=== PATIENT | female | born 1955 | race Caucasian/White ===

== ENCOUNTER → 2016-09-11 | Outpatient (CLI) | payer MEDICARE ==
[~2016-09-11] MED LIST: ACTOS30 MG PO; ALLOPURINOL100 MG PO; AMARYL2 MG PO; ASPI-COR81 M1 PO; AV-PHOS 250 NE250 MG PO; Amaryl2 MG PO; BACTRIM 400 MG-1 TAB PO; CELLCEPT500 MG PO; CLONIDINE0.3 MG PO; COLACE100 MG PO; COREG3.125 MG PO; COREG6.25 MG PO; COUMADIN0.5 MG PO; COUMADIN3 M1 PO; COUMADIN4 M1 PO; Coumadin2.5 MG PO; Coumadin3 MG PO; DIOVAN80 MG PO; FLEXERIL10 MG PO; FOSRENOL500 MG PO; FUROSEMIDE80 MG PO; HYDROCODONE BIT1 T11 PO; IMDUR SA30 MG PO; IMDUR SA60 M1 PO; IMDUR30 MG PO; IRON325 M1 PO; IRON65 MG PO; LASIX20 MG PO; LASIX40 MG PO; LEVEMIR10 ML SC; LIPITOR40 MG PO; LISINOPRIL10 M1 PO; LOPRESSOR25 MG PO; Lopressor25 MG PO; MAG OXIDE PO; MAGNESIUM OXID400 MG PO; MAGOX 400400 MG PO; MECLIZINE HCL25 M2 PO; MEDROL DOSEPAK4 MG PO; METFORMIN500 MG PO; MYCOSTATIN100000 U/M PO; NORVASC10 MG PO; NORVASC5 MG PO; NOVOLOG 70/30 M10 ML SC; NOVOLOG10 ML SC; OSCAL ULTRA 6001 TA1 PO; PHOS-NAK1 PDR PO; PHOSLO667 M1 PO; PLAVIX75 M1 PO; PLAVIX75 MG PO; PRILOSEC20 MG PO; PROCRIT10000 U/ML IJ; PROGRAF0.5 MG PO; PROGRAF1 MG PO; RANEXA500 MG PO; SENSIPAR30 MG PO; SEPTRA DS1 TAB PO; SKELAXIN800 MG PO; SODIUM BICARBO650 MG PO; SYNTHROID,LEVO25 MCG PO; SYNTHROID0.025 MG PO; SYNTHROID25 MCG PO; Senokot1 TAB PO; VALCYTE450 MG PO; VICODIN 5/500 505 MG PO; VICODIN 500 MG-1 TAB PO; VICODIN ES 7501 TAB PO; VITAMIN D-32000 UNI1 PO; WARFARIN SOD2 MG PO; WARFARIN SOD5 MG PO; XANAX0.25 MG PO; ZOLOFT50 MG PO
[2016-09-11 08:57] LABS: BASO % 0.5 % (0.0-1.0); EOS # 0.2 10*3/uL (0.0-0.4); EOS % 2.7 % (1.0-4.0); HEMATOCRIT 43.9 % (37.0-47.0); HEMOGLOBIN 14.4 g/dl (12.0-16.0); LYMPH # 0.9 10*3/uL (1.3-4.4); LYMPH % 14.2 % (27.0-41.0); MEAN CELL VOLUME 88.2 fl (81.0-99.0); MEAN CORPUSCULAR HGB 28.9 pg (27.0-31.0); MEAN CORPUSCULAR HGB CONC 32.8 g/dl (33.0-37.0); MONO # 0.6 10*3/uL (0.1-1.0); MONO % 9.7 % (3.0-9.0); NEUT # 4.5 10*3/uL (2.3-7.9); NEUT % 72.4 % (47.0-73.0); PLATELET COUNT AUTOMATED 144 10*3/uL (130-400); RED BLOOD COUNT 4.98 10*6/uL (4.10-5.10); RED CELL DISTRI WIDTH 12.8 % (0-14.5); WHITE BLOOD COUNT 6.2 10*3/uL (4.8-10.8)
[2016-09-11 09:55] LABS: ALBUMIN 3.6 gm/dl (3.1-4.5); ALKALINE PHOSPHATASE 97 U/L (45-117); BILIRUBIN, TOTAL 0.5 mg/dl (0.2-1.0); BUN 19 mg/dl (7-24); CARBON DIOXIDE 29 mmol/L (21-32); CHLORIDE 109 mmol/L (98-107); CHOLESTEROL 152 mg/dL (<200); CPK 65 U/L (26-192); EST GLOM FILT AFRICAN AMERICAN > 60 ml/min; GLUCOSE 116 mg/dL (65-99); LDH 151 U/L (84-246); PHOSPHOROUS 2.2 mg/dL (2.5-4.9); POTASSIUM 4.1 mmol/L (3.5-5.1); SGOT/AST 20 IU/L (3-35); SGPT/ALT 27 U/L (12-78); SODIUM 145 mmol/L (136-145); TOTAL PROTEIN 6.4 gm/dL (6.4-8.2)
== END | disposition home or self-care (01) ==
LOC: LAB 08:18
PROVIDERS: Internal Medicine Nephrology
DX: I15.1 Hypertension secondary to other renal disorders (principal); E83.40 Disorders of magnesium metabolism, unspecified; D89.9 Disorder involving the immune mechanism, unspecified; D63.1 Anemia in chronic kidney disease; T86.19 Other complication of kidney transplant; Z94.0 Kidney transplant status

== ENCOUNTER 2016-09-21 12:34 | Emergency (ER) | payer MEDICARE ==
[~2016-09-21 12:34] MED LIST changes: -LISINOPRIL10 M1 PO; -ZOLOFT50 MG PO
[2016-09-21 13:24] LABS: BASO % 0.6 % (0.0-1.0); EOS # 0.2 10*3/uL (0.0-0.4); EOS % 3.3 % (1.0-4.0); HEMATOCRIT 42.6 % (37.0-47.0); HEMOGLOBIN 13.9 g/dl (12.0-16.0); LYMPH % 18.1 % (27.0-41.0); MEAN CELL VOLUME 88.4 fl (81.0-99.0); MEAN CORPUSCULAR HGB 28.8 pg (27.0-31.0); MEAN CORPUSCULAR HGB CONC 32.6 g/dl (33.0-37.0); MEAN PLATELET VOLUME 12.2 fl (9.6-12.3); MONO # 0.7 10*3/uL (0.1-1.0); NEUT # 3.5 10*3/uL (2.3-7.9); NEUT % 65.6 % (47.0-73.0); PLATELET COUNT AUTOMATED 143 10*3/uL (130-400); RED BLOOD COUNT 4.82 10*6/uL (4.10-5.10); RED CELL DISTRI WIDTH 12.8 % (0-14.5); WHITE BLOOD COUNT 5.4 10*3/uL (4.8-10.8)
[2016-09-21 13:35] LABS: INTERNATIONAL NORM RATIO 2.3 (2.0-3.5); PROTHROMBIN TIME 24.8 SECONDS (9.0-12.4)
[2016-09-21 13:40] LABS: ALBUMIN 3.4 gm/dl (3.1-4.5); ALKALINE PHOSPHATASE 91 U/L (45-117); BILIRUBIN, TOTAL 0.4 mg/dl (0.2-1.0); BUN 18 mg/dl (7-24); CARBON DIOXIDE 25 mmol/L (21-32); CHLORIDE 108 mmol/L (98-107); EST GLOM FILT AFRICAN AMERICAN > 60 ml/min; GLUCOSE 139 mg/dL (65-99); POTASSIUM 4.3 mmol/L (3.5-5.1); SGOT/AST 17 IU/L (3-35); SGPT/ALT 22 U/L (12-78); SODIUM 142 mmol/L (136-145); TOTAL PROTEIN 6.2 gm/dL (6.4-8.2)
[2016-10-02] MEDS ORDERED: PROGRAF0.5 MG PO (11:57)
[2016-10-02] MEDS ORDERED: LISINOPRIL10 M1 PO (11:59)
[2016-10-02] MEDS ORDERED: VITAMIN D-32000 UNI1 PO (12:03)
[2016-10-02] MEDS ORDERED: ZOLOFT50 MG PO (12:06)
[2016-10-02] MEDS ORDERED: NOVOLOG10 ML SC (12:07)
[2016-10-04] MEDS ORDERED: LOPRESSOR25 MG PO (12:40)
== END 2016-09-21 15:09 | disposition home or self-care (01) ==
LOC: ED 12:34
PROVIDERS: Nurse Practitioner Family
DX: S01.81XA Laceration without foreign body of other part of head, initial encounter (principal); S80.01XA Contusion of right knee, initial encounter; S66.912A Strain of unspecified muscle, fascia and tendon at wrist and hand level, left hand, initial encounter; S66.911A Strain of unspecified muscle, fascia and tendon at wrist and hand level, right hand, initial encounter; Z79.4 Long term (current) use of insulin; Z79.01 Long term (current) use of anticoagulants; Z90.49 Acquired absence of other specified parts of digestive tract; Z88.6 Allergy status to analgesic agent; Z88.8 Allergy status to other drugs, medicaments and biological substances; W19.XXXA Unspecified fall, initial encounter; Y93.89 Activity, other specified; Y92.9 Unspecified place or not applicable; Y99.9 Unspecified external cause status

== ENCOUNTER → 2016-11-11 | Outpatient (CLI) | payer MEDICARE ==
[~2016-11-11] MED LIST changes: +LISINOPRIL10 M1 PO; +ZOLOFT50 MG PO
[2016-11-11 09:04] LABS: BASO % 0.5 % (0.0-1.0); EOS # 0.1 10*3/uL (0.0-0.4); EOS % 1.4 % (1.0-4.0); HEMATOCRIT 43.8 % (37.0-47.0); HEMOGLOBIN 14.7 g/dl (12.0-16.0); IG # 0.1 10*3/uL (0.0-0.1); LYMPH # 1.2 10*3/uL (1.3-4.4); LYMPH % 19.3 % (27.0-41.0); MEAN CELL VOLUME 86.9 fl (81.0-99.0); MEAN CORPUSCULAR HGB 29.2 pg (27.0-31.0); MEAN CORPUSCULAR HGB CONC 33.6 g/dl (33.0-37.0); MEAN PLATELET VOLUME 12.4 fl (9.6-12.3); MONO # 0.6 10*3/uL (0.1-1.0); MONO % 9.6 % (3.0-9.0); NEUT # 4.3 10*3/uL (2.3-7.9); NEUT % 68.4 % (47.0-73.0); PLATELET COUNT AUTOMATED 178 10*3/uL (130-400); RED BLOOD COUNT 5.04 10*6/uL (4.10-5.10); RED CELL DISTRI WIDTH 13.2 % (0-14.5); WHITE BLOOD COUNT 6.2 10*3/uL (4.8-10.8)
[2016-11-11 09:24] LABS: ALBUMIN 3.4 gm/dl (3.1-4.5); ALKALINE PHOSPHATASE 106 U/L (45-117); BILIRUBIN, TOTAL 0.5 mg/dl (0.2-1.0); BUN 18 mg/dl (7-24); CARBON DIOXIDE 25 mmol/L (21-32); CHLORIDE 109 mmol/L (98-107); CHOLESTEROL 172 mg/dL (<200); EST GLOM FILT AFRICAN AMERICAN > 60 ml/min; GLUCOSE 174 mg/dL (65-99); HDL CHOLESTEROL 57 mg/dl (40-60); LDH 170 U/L (84-246); LDL CHOLESTEROL 89 mg/dL (9-159); MAGNESIUM 2.3 mg/dL (1.5-2.1); PHOSPHOROUS 2.1 mg/dL (2.5-4.9); POTASSIUM 4.2 mmol/L (3.5-5.1); SGOT/AST 15 IU/L (3-35); SGPT/ALT 30 U/L (12-78); SODIUM 144 mmol/L (136-145); TOTAL PROTEIN 6.1 gm/dL (6.4-8.2); TRIGLYCERIDES 132 mg/dl (<150); URIC ACID 4.8 mg/dL (2.6-6.0); VLDL CHOLESTEROL 26 mg/dL (6-40)
[2016-11-11 09:31] LABS: CPK 64 U/L (26-192); FREE T4 1.07 ng/dl (0.76-1.46)
[2016-11-11 09:34] LABS: PTH INTACT 226.4 pg/mL (14.0-72.0); VITAMIN D, 25-HYDROXY 46.5 ng/mL (30-100)
[2016-11-11 10:18] LABS: URINE TP/CRE RATIO 0.1 (<0.21)
[2016-11-11 10:27] LABS: BILIRUBIN NEGATIVE (NEGATIVE); BLOOD NEGATIVE (NEGATIVE); CLARITY SL CLOUDY (CLEAR); COLOR YELLOW (YELLOW); GLUCOSE 2+ (NEGATIVE); KETONE NEGATIVE (NEGATIVE); LEUKO ESTERASE NEGATIVE (NEGATIVE); NITRITE NEGATIVE (NEGATIVE); PROTEIN NEGATIVE (NEGATIVE)
[2016-11-11 10:37] LABS: BACTERIA TRACE
== END | disposition home or self-care (01) ==
LOC: LAB 08:13
PROVIDERS: Internal Medicine Nephrology
DX: E03.9 Hypothyroidism, unspecified (principal); D89.9 Disorder involving the immune mechanism, unspecified; N25.81 Secondary hyperparathyroidism of renal origin; E78.2 Mixed hyperlipidemia; E55.9 Vitamin D deficiency, unspecified; E83.40 Disorders of magnesium metabolism, unspecified; I51.7 Cardiomegaly; T86.19 Other complication of kidney transplant; D63.1 Anemia in chronic kidney disease; Z94.0 Kidney transplant status

== ENCOUNTER 2016-11-26 15:00 | Inpatient (IN) | payer MEDICARE ==
[~2016-11-26] VITALS: Ht 167.6 cm; Wt 87.8 kg
--- NOTE | ~2016-11-26 | ST ---
[place], [place] EXERCISE STRESS TEST REPORT NAME: JEFF MCKENZIE UNIT #: [id number] ROOM: 427 DOCTOR: AIDE LI MD BIRTHDATE: [birth year] DOS: 11/27/2016 Lexiscan portion of the Lexiscan Cardiolite. Baseline cardiogram sinus rhythm with nonspecific ST-T changes, 0.4 mg Lexiscan, duration of 10 seconds. With Lexiscan, no EKG changes. No chest pain. Blood pressure and heart rate response was normal. Nuclear images will be reported separately. AIDE LI MD CM:STRESS:EXERCISE STRESS TEST REPORT [id number] AIDE LI MD
--- NOTE | ~2016-11-26 | CON ---
[place], [place] REPORT OF CONSULTATION NAME[facility]IE [id number] UNIT #: [id number] ROOM: 427 DOCTOR: GUILLERMO LOFTONAIDE BIRTHDATE: [birth year] DOS: 11/27/2016 CHIEF COMPLAINT: Chest pressure. HISTORY OF PRESENT ILLNESS: A 61-year-old female very well known to in who had done a heart catheterization last year prior to her renal transplantation. She was seen by Dr. Razo, who was covering in in September, had an echocardiogram that showed an excellent ejection fraction, came in with very similar complaints of chest pressure and tightness in her throat area, particularly with exertion. She was able to relieve the pressure by eating some , taking aspirin, but yesterday afternoon it got worse, and she came here. No acute EKG changes suggestion of myocardial ischemia. According to the patient, she had a stress test in June prior to her renal transplantation in [place] and it was normal, but she is still very symptomatic with that, and last time when she was here in September and Dr. Razo was covering in, her ejection fraction was preserved according to the patient. Right now, she still complains of chest heaviness and pressure with radiation to the jaw area and to the left arm area. She did have a heart catheterization, which I remember try to get the reports from [place], had single vessel coronary artery disease with collateralization. PAST MEDICAL HISTORY: Significant for Alport's syndrome, chronic kidney disease, renal transplantation, diabetes, history of myocardial infarction, immunocompromised patient, history of DVT. PAST SURGICAL HISTORY: Cardiac catheterization, the last one is 2013, kidney transplant recipient, status post tonsillectomy, adenoidectomy. SOCIAL HISTORY: Denies any alcohol or drug abuse. FAMILY HISTORY: Positive for lung cancer and coronary artery disease and diabetes. HOME MEDICATIONS: Amlodipine, atorvastatin, clopidogrel, insulin, levothyroxine, metoprolol, Coumadin. REVIEW OF SYSTEMS: CONSTITUTIONAL: No fever, no chills. HEENT: No visual disturbances or hearing problems. CARDIOVASCULAR: As described in HPI. RESPIRATORY: Does have shortness of breath. GENITOURINARY: No dysuria, hematuria. NEUROLOGIC: No syncope. PSYCHIATRIC: No depression. ENDOCRINE: Intact. PHYSICAL EXAMINATION: VITAL SIGNS: Pressure is 130/70. She is in sinus rhythm. HEENT: Unremarkable. No carotid bruit, no thyromegaly, no lymphadenopathy. LUNGS: Diminished air entry. [place], [place] REPORT OF CONSULTATION NAME: JEFF MCKENZIE UNIT #: [id number] ROOM: [facility] DOCTOR: AIDE LI MD BIRTHDATE: [birth year] HEART: Sounds are regular. ABDOMEN: Soft, nontender. NEUROLOGICAL: Alert, oriented x3. Sensory and motor intact, appears to be very anxious. LABORATORY DATA: Sodium 143, potassium 4.1, BUN and creatinine 16 and 0.9. CPK-MB, troponins are all negative. Hemoglobin and hematocrit within normal limits. EKG sinus rhythm with nonspecific ST-T changes. Chest x-ray showed normal. IMPRESSION: The patient with chest heaviness known history of coronary artery disease, renal transplantation, hypertension, hyperlipidemia, diabetes mellitus. RECOMMENDATIONS: We will proceed with a Lexiscan Cardiolite stress test because of the continued symptoms. She is already on lipid lowering agents, antiplatelet drugs, and nitrates and I will closely follow up. AIDE LI MD CM:CONSTR:REPORT OF CONSULTATION [id number] 11/27/16 0824 interface
[2016-11-26 15:26] VITALS: BP 146/75
[2016-11-26 15:27] LABS: BASO % 0.4 % (0.0-1.0); EOS # 0.1 10*3/uL (0.0-0.4); EOS % 0.6 % (1.0-4.0); HEMATOCRIT 45.3 % (37.0-47.0); HEMOGLOBIN 15.1 g/dl (12.0-16.0); LYMPH % 12.6 % (27.0-41.0); MEAN CORPUSCULAR HGB 29.3 pg (27.0-31.0); MEAN CORPUSCULAR HGB CONC 33.3 g/dl (33.0-37.0); MEAN PLATELET VOLUME 11.8 fl (9.6-12.3); MONO # 0.7 10*3/uL (0.1-1.0); MONO % 9.3 % (3.0-9.0); NEUT % 76.7 % (47.0-73.0); PLATELET COUNT AUTOMATED 170 10*3/uL (130-400); RED BLOOD COUNT 5.15 10*6/uL (4.10-5.10); RED CELL DISTRI WIDTH 13.1 % (0-14.5); WHITE BLOOD COUNT 7.9 10*3/uL (4.8-10.8)
[2016-11-26 15:36] LABS: INTERNATIONAL NORM RATIO 2.9 (2.0-3.5); PROTHROMBIN TIME 32.3 SECONDS (9.0-12.4)
[2016-11-26 15:43] LABS: ALBUMIN 3.7 gm/dl (3.1-4.5); BILIRUBIN, TOTAL 0.4 mg/dl (0.2-1.0); BUN 16 mg/dl (7-24); CARBON DIOXIDE 26 mmol/L (21-32); CHLORIDE 108 mmol/L (98-107); CKMB 0.8 ng/ml (0.5-3.6); EST GLOM FILT AFRICAN AMERICAN > 60 ml/min; GLUCOSE 136 mg/dL (65-99); POTASSIUM 4.1 mmol/L (3.5-5.1); SGOT/AST 15 IU/L (3-35); SGPT/ALT 34 U/L (12-78); SODIUM 143 mmol/L (136-145); TOTAL PROTEIN 6.7 gm/dL (6.4-8.2)
[2016-11-26 15:44] LABS: ALKALINE PHOSPHATASE 110 U/L (45-117); CPK 70 U/L (26-192)
[2016-11-26 15:49] LABS: C-REACTIVE PROTEIN < 0.29 MG/DL (0-0.3); TROPONIN I < 0.015 ng/ml (<0.045)
[2016-11-26 16:03] VITALS: BP 130/74
[2016-11-26 16:42] VITALS: BP 134/72
[2016-11-26 17:24] LABS: LA>2 REFLEX 2 HR DRAW NOW
[2016-11-26 17:35] VITALS: BP 152/62
[2016-11-26] MEDS ORDERED: BACTRIM 400 MG-1 TAB PO (17:52)
[2016-11-26] MEDS ORDERED: LOPRESSOR25 MG PO (17:53)
[2016-11-26 18:08] LABS: CKMB 0.6 ng/ml (0.5-3.6); CPK 62 U/L (26-192)
[2016-11-26 18:12] LABS: TROPONIN I < 0.015 ng/ml (<0.045)
[2016-11-27] VITALS: BP 114/60
[2016-11-27 01:38] LABS: CKMB 0.6 ng/ml (0.5-3.6); CPK 55 U/L (26-192)
[2016-11-27 01:42] LABS: TROPONIN I < 0.015 ng/ml (<0.045)
[2016-11-27 06:12] LABS: BASO % 0.3 % (0.0-1.0); EOS # 0.1 10*3/uL (0.0-0.4); EOS % 1.4 % (1.0-4.0); HEMATOCRIT 41.5 % (37.0-47.0); HEMOGLOBIN 13.9 g/dl (12.0-16.0); LYMPH # 0.9 10*3/uL (1.3-4.4); LYMPH % 14.2 % (27.0-41.0); MEAN CELL VOLUME 88.5 fl (81.0-99.0); MEAN CORPUSCULAR HGB 29.6 pg (27.0-31.0); MEAN CORPUSCULAR HGB CONC 33.5 g/dl (33.0-37.0); MONO # 0.8 10*3/uL (0.1-1.0); MONO % 12.3 % (3.0-9.0); NEUT # 4.5 10*3/uL (2.3-7.9); NEUT % 71.3 % (47.0-73.0); PLATELET COUNT AUTOMATED 154 10*3/uL (130-400); RED BLOOD COUNT 4.69 10*6/uL (4.10-5.10); RED CELL DISTRI WIDTH 13.2 % (0-14.5); WHITE BLOOD COUNT 6.3 10*3/uL (4.8-10.8)
[2016-11-27 06:26] LABS: CKMB 0.7 ng/ml (0.5-3.6); CPK 56 U/L (26-192)
[2016-11-27 06:38] LABS: TROPONIN I < 0.015 ng/ml (<0.045)
[2016-11-27 06:54] LABS: INTERNATIONAL NORM RATIO 2.8 (2.0-3.5); PROTHROMBIN TIME 31.5 SECONDS (9.0-12.4)
[2016-11-27 07:06] LABS: HEMOGLOBIN A1c 7.3 % (4.8-5.6)
[2016-11-27 07:07] LABS: BUN 16 mg/dl (7-24); CARBON DIOXIDE 26 mmol/L (21-32); CHLORIDE 107 mmol/L (98-107); CHOLESTEROL 161 mg/dL (<200); EST GLOM FILT AFRICAN AMERICAN > 60 ml/min; GLUCOSE 176 mg/dL (65-99); MAGNESIUM 1.9 mg/dL (1.5-2.1); PHOSPHOROUS 2.5 mg/dL (2.5-4.9); POTASSIUM 3.9 mmol/L (3.5-5.1); SODIUM 142 mmol/L (136-145)
[2016-11-27 07:18] LABS: FREE T4 1.04 ng/dl (0.76-1.46); HDL CHOLESTEROL 58 mg/dl (40-60); LDL CHOLESTEROL 78 mg/dL (9-159); TRIGLYCERIDES 127 mg/dl (<150); VLDL CHOLESTEROL 25 mg/dL (6-40)
[2016-11-27 08:00] VITALS: BP 155/75
[2016-11-27 12:00] VITALS: BP 113/68
[2016-11-27 16:00] VITALS: BP 110/65
[2016-11-27 20:00] VITALS: BP 102/58
[2016-11-28] VITALS: BP 124/66
[2016-11-28 05:10] VITALS: BP 133/71
[2016-11-28 05:18] VITALS: BP 148/92
== END 2016-11-28 06:37 | disposition short-term general hospital (02) | DRG 303 ==
LOC: ED 15:00 → 4E 16:33 → EDHOLD 16:33 → 4E 17:00 → ICCU 11-28 05:50
PROVIDERS: Emergency Medicine; Student in an Organized Health Care Education/Training Program
PROC: 4A02XM4 Measurement of Cardiac Total Activity, External Approach (ICD-10-PCS; principal; 2016-11-27)
DX: I25.10 Atherosclerotic heart disease of native coronary artery without angina pectoris (principal); E11.22 Type 2 diabetes mellitus with diabetic chronic kidney disease; I82.509 Chronic embolism and thrombosis of unspecified deep veins of unspecified lower extremity; Q87.81 Alport syndrome; Z94.0 Kidney transplant status; E78.5 Hyperlipidemia, unspecified; N18.9 Chronic kidney disease, unspecified; E03.9 Hypothyroidism, unspecified; I12.9 Hypertensive chronic kidney disease with stage 1 through stage 4 chronic kidney disease, or unspecified chronic kidney disease; I25.2 Old myocardial infarction; Z90.49 Acquired absence of other specified parts of digestive tract; Z80.1 Family history of malignant neoplasm of trachea, bronchus and lung; Z82.49 Family history of ischemic heart disease and other diseases of the circulatory system; Z79.01 Long term (current) use of anticoagulants; Z79.84 Long term (current) use of oral hypoglycemic drugs; Z79.899 Other long term (current) drug therapy; Z79.4 Long term (current) use of insulin

== ENCOUNTER → 2016-12-30 | Outpatient (CLI) | payer MEDICARE ==
[2016-12-30 09:18] LABS: BASO # 0.1 10*3/uL (0.0-0.1); BASO % 0.6 % (0.0-1.0); EOS # 0.3 10*3/uL (0.0-0.4); EOS % 3.8 % (1.0-4.0); HEMATOCRIT 39.7 % (37.0-47.0); HEMOGLOBIN 12.7 g/dl (12.0-16.0); LYMPH % 11.5 % (27.0-41.0); MEAN CELL VOLUME 90.4 fl (81.0-99.0); MEAN CORPUSCULAR HGB 28.9 pg (27.0-31.0); MONO # 0.9 10*3/uL (0.1-1.0); MONO % 9.8 % (3.0-9.0); NEUT # 6.4 10*3/uL (2.3-7.9); NEUT % 74.1 % (47.0-73.0); PLATELET COUNT AUTOMATED 262 10*3/uL (130-400); RED BLOOD COUNT 4.39 10*6/uL (4.10-5.10); RED CELL DISTRI WIDTH 13.7 % (0-14.5); WHITE BLOOD COUNT 8.7 10*3/uL (4.8-10.8)
[2016-12-30 09:46] LABS: ALBUMIN 3.3 gm/dl (3.1-4.5); ALKALINE PHOSPHATASE 142 U/L (45-117); BILIRUBIN, TOTAL 0.3 mg/dl (0.2-1.0); BUN 21 mg/dl (7-24); CARBON DIOXIDE 29 mmol/L (21-32); CHLORIDE 105 mmol/L (98-107); CHOLESTEROL 171 mg/dL (<200); CPK 51 U/L (26-192); EST GLOM FILT AFRICAN AMERICAN > 60 ml/min; GLUCOSE 152 mg/dL (65-99); LDH 174 U/L (84-246); MAGNESIUM 1.8 mg/dL (1.5-2.1); PHOSPHOROUS 2.6 mg/dL (2.5-4.9); POTASSIUM 4.5 mmol/L (3.5-5.1); SGOT/AST 18 IU/L (3-35); SGPT/ALT 21 U/L (12-78); SODIUM 140 mmol/L (136-145); TOTAL PROTEIN 6.7 gm/dL (6.4-8.2); URIC ACID 5.6 mg/dL (2.6-6.0)
== END | disposition home or self-care (01) ==
LOC: LAB 08:39
PROVIDERS: Internal Medicine Nephrology
DX: I15.1 Hypertension secondary to other renal disorders (principal); E83.40 Disorders of magnesium metabolism, unspecified; D89.9 Disorder involving the immune mechanism, unspecified; D63.1 Anemia in chronic kidney disease; T86.19 Other complication of kidney transplant; Z94.0 Kidney transplant status

== ENCOUNTER → 2017-02-16 | Outpatient (CLI) | payer MEDICARE ==
[2017-02-16 08:53] LABS: BASO # 0.1 10*3/uL (0.0-0.1); BASO % 0.7 % (0.0-1.0); EOS # 0.2 10*3/uL (0.0-0.4); EOS % 2.7 % (1.0-4.0); HEMATOCRIT 42.3 % (37.0-47.0); HEMOGLOBIN 13.5 g/dl (12.0-16.0); LYMPH % 13.8 % (27.0-41.0); MEAN CELL VOLUME 89.4 fl (81.0-99.0); MEAN CORPUSCULAR HGB 28.5 pg (27.0-31.0); MEAN CORPUSCULAR HGB CONC 31.9 g/dl (33.0-37.0); MEAN PLATELET VOLUME 12.4 fl (9.6-12.3); MONO # 0.6 10*3/uL (0.1-1.0); MONO % 8.8 % (3.0-9.0); NEUT # 5.4 10*3/uL (2.3-7.9); NEUT % 73.6 % (47.0-73.0); PLATELET COUNT AUTOMATED 164 10*3/uL (130-400); RED BLOOD COUNT 4.73 10*6/uL (4.10-5.10); RED CELL DISTRI WIDTH 13.2 % (0-14.5); WHITE BLOOD COUNT 7.3 10*3/uL (4.8-10.8)
[2017-02-16 09:29] LABS: ALBUMIN 3.6 gm/dl (3.1-4.5); ALKALINE PHOSPHATASE 94 U/L (45-117); BILIRUBIN, TOTAL 0.3 mg/dl (0.2-1.0); BUN 19 mg/dl (7-24); CARBON DIOXIDE 30 mmol/L (21-32); CHLORIDE 106 mmol/L (98-107); CHOLESTEROL 163 mg/dL (<200); CPK 84 U/L (26-192); EST GLOM FILT AFRICAN AMERICAN > 60 ml/min; GLUCOSE 108 mg/dL (65-99); LDH 167 U/L (84-246); MAGNESIUM 1.8 mg/dL (1.5-2.1); PHOSPHOROUS 3.1 mg/dL (2.5-4.9); POTASSIUM 4.1 mmol/L (3.5-5.1); SGOT/AST 18 IU/L (3-35); SGPT/ALT 20 U/L (12-78); SODIUM 144 mmol/L (136-145); TOTAL PROTEIN 6.3 gm/dL (6.4-8.2); URIC ACID 5.4 mg/dL (2.6-6.0)
== END | disposition home or self-care (01) ==
LOC: LAB 08:35
PROVIDERS: Internal Medicine Nephrology
DX: E83.40 Disorders of magnesium metabolism, unspecified (principal); I15.1 Hypertension secondary to other renal disorders; D89.9 Disorder involving the immune mechanism, unspecified; N18.9 Chronic kidney disease, unspecified; D63.1 Anemia in chronic kidney disease; T86.19 Other complication of kidney transplant; Z94.0 Kidney transplant status

== ENCOUNTER → 2017-03-11 | Outpatient (CLI) | payer MEDICARE ==
[2017-03-11 09:13] LABS: BASO # 0.1 10*3/uL (0.0-0.1); BASO % 0.9 % (0.0-1.0); EOS # 0.2 10*3/uL (0.0-0.4); EOS % 3.9 % (1.0-4.0); HEMATOCRIT 40.8 % (37.0-47.0); HEMOGLOBIN 12.8 g/dl (12.0-16.0); LYMPH # 1.1 10*3/uL (1.3-4.4); LYMPH % 18.2 % (27.0-41.0); MEAN CELL VOLUME 88.7 fl (81.0-99.0); MEAN CORPUSCULAR HGB 27.8 pg (27.0-31.0); MEAN CORPUSCULAR HGB CONC 31.4 g/dl (33.0-37.0); MEAN PLATELET VOLUME 13.2 fl (9.6-12.3); MONO # 0.6 10*3/uL (0.1-1.0); MONO % 10.9 % (3.0-9.0); NEUT # 3.9 10*3/uL (2.3-7.9); NEUT % 65.8 % (47.0-73.0); PLATELET COUNT AUTOMATED 146 10*3/uL (130-400); RED CELL DISTRI WIDTH 13.9 % (0-14.5); WHITE BLOOD COUNT 5.9 10*3/uL (4.8-10.8)
[2017-03-11 09:42] LABS: ALBUMIN 3.2 gm/dl (3.1-4.5); ALKALINE PHOSPHATASE 98 U/L (45-117); BILIRUBIN, TOTAL 0.3 mg/dl (0.2-1.0); BUN 26 mg/dl (7-24); CARBON DIOXIDE 27 mmol/L (21-32); CHLORIDE 110 mmol/L (98-107); CHOLESTEROL 153 mg/dL (<200); CPK 82 U/L (26-192); EST GLOM FILT AFRICAN AMERICAN > 60 ml/min; GLUCOSE 112 mg/dL (65-99); LDH 203 U/L (84-246); MAGNESIUM 1.8 mg/dL (1.5-2.1); PHOSPHOROUS 2.7 mg/dL (2.5-4.9); POTASSIUM 4.4 mmol/L (3.5-5.1); SGOT/AST 18 IU/L (3-35); SGPT/ALT 23 U/L (12-78); SODIUM 145 mmol/L (136-145); TOTAL PROTEIN 6.4 gm/dL (6.4-8.2); URIC ACID 5.4 mg/dL (2.6-6.0)
== END | disposition home or self-care (01) ==
LOC: LAB 08:44
PROVIDERS: Internal Medicine Nephrology
DX: I15.1 Hypertension secondary to other renal disorders (principal); E83.40 Disorders of magnesium metabolism, unspecified; T86.19 Other complication of kidney transplant; D89.9 Disorder involving the immune mechanism, unspecified; D63.1 Anemia in chronic kidney disease; Z94.0 Kidney transplant status

== ENCOUNTER 2018-10-27 17:04 | Inpatient (IN) | payer OTHER ==
[~2018-10-27] VITALS: Ht 165.1 cm; Wt 97.2 kg
[2018-10-27 17:05] VITALS: BP 103/65
[2018-10-27 17:57] LABS: BILIRUBIN NEGATIVE (NEGATIVE); BLOOD NEGATIVE (NEGATIVE); CLARITY CLEAR (CLEAR); COLOR YELLOW (YELLOW); GLUCOSE NEGATIVE (NEGATIVE); KETONE NEGATIVE (NEGATIVE); LEUKO ESTERASE NEGATIVE (NEGATIVE); NITRITE NEGATIVE (NEGATIVE); SPECIFIC GRAVITY 1.025 (1.005-1.030); UROBILINOGEN 0.2 E.U./dl (0.2-1.0)
[2018-10-27 18:07] LABS: HYALINE CAST 31-40
[2018-10-27 18:08] LABS: BACTERIA 1+; EPITHELIAL CELLS 21-30; URIC ACID CRYSTALS 1+
[2018-10-27 18:12] LABS: BASO % 0.3 % (0.0-1.0); HEMATOCRIT 46.1 % (37.0-47.0); HEMOGLOBIN 14.5 g/dl (12.0-16.0); LYMPH # 0.3 10*3/uL (1.3-4.4); LYMPH % 4.1 % (27.0-41.0); MEAN CELL VOLUME 90.2 fl (81.0-99.0); MEAN CORPUSCULAR HGB 28.4 pg (27.0-31.0); MEAN CORPUSCULAR HGB CONC 31.5 g/dl (33.0-37.0); MEAN PLATELET VOLUME 12.7 fl (9.6-12.3); MONO # 0.5 10*3/uL (0.1-1.0); MONO % 6.1 % (3.0-9.0); NEUT % 88.2 % (47.0-73.0); PLATELET COUNT AUTOMATED 141 10*3/uL (130-400); RED BLOOD COUNT 5.11 10*6/uL (4.10-5.10); RED CELL DISTRI WIDTH 13.8 % (0-14.5); WHITE BLOOD COUNT 7.9 10*3/uL (4.8-10.8)
[2018-10-27 18:20] LABS: INTERNATIONAL NORM RATIO 2.4 (2.0-3.5)
[2018-10-27 18:36] LABS: ALBUMIN 3.2 gm/dl (3.1-4.5); CREATININE 1.36 mg/dL (0.55-1.02); POTASSIUM 4.2 mmol/L (3.5-5.1); TOTAL PROTEIN 6.7 gm/dL (6.4-8.2)
[2018-10-27 18:37] LABS: TROPONIN I 0.016 ng/ml (<0.045)
--- NOTE | 2018-10-27 19:13 | NUR ---
PATIENT RESTING IN BED WITH AT BEDSIDE. BED IN LOW POSITION, SIDE RIALS UX2, CALL LIGHT IN REACH.
[2018-10-27 20:40] VITALS: BP 148/62
--- NOTE | 2018-10-27 20:40 | NUR ---
Time: 2039 A 63 year old FEMALE admitted to 5E under services of CORRINA GUZMAN DO. Pt. arrived via bed from ER. Chief complaint: FLU. ALEKSANDAR BLANTON
[2018-10-27 20:46] VITALS: BP 104/60
[2018-10-27] MEDS ORDERED: COUMADIN3 M1 PO (21:03)
[2018-10-27] MEDS ORDERED: KLOR-CON M2020 ME1 PO (21:06)
[2018-10-27] MEDS ORDERED: ASPIRIN ADULT L81 M1 PO (21:06)
[2018-10-27] MEDS ORDERED: SENNA-S TABLET1 EACH PO (21:07)
[2018-10-27] MEDS ORDERED: AMITRIPTYLINE10 MG PO (21:08)
[2018-10-27] MEDS ORDERED: PACERONE200 MG PO (21:08)
[2018-10-27] MEDS ORDERED: VERELAN PM PO (21:09)
--- NOTE | 2018-10-27 21:11 | NUR ---
INFORMED THAT MEDICATIONS ARE VERIFIED AND PATIENT NEEDS PROGRAF AND CELLCEPT AT THIS TIME. STATES SHE WILL LET KNOW.
[2018-10-28] VITALS: BP 150/58
[2018-10-28 06:56] LABS: BASO % 0.2 % (0.0-1.0); EOS % 0.2 % (1.0-4.0); LYMPH # 0.6 10*3/uL (1.3-4.4); LYMPH % 9.7 % (27.0-41.0); MEAN CELL VOLUME 89.9 fl (81.0-99.0); MEAN CORPUSCULAR HGB 28.6 pg (27.0-31.0); MEAN CORPUSCULAR HGB CONC 31.8 g/dl (33.0-37.0); MEAN PLATELET VOLUME 12.5 fl (9.6-12.3); MONO # 0.6 10*3/uL (0.1-1.0); MONO % 9.2 % (3.0-9.0); NEUT % 78.9 % (47.0-73.0); PLATELET COUNT AUTOMATED 131 10*3/uL (130-400); RED BLOOD COUNT 4.34 10*6/uL (4.10-5.10); WHITE BLOOD COUNT 6.3 10*3/uL (4.8-10.8)
[2018-10-28 07:06] LABS: HEMOGLOBIN 12.4 g/dl (12.0-16.0)
[2018-10-28 07:21] LABS: INTERNATIONAL NORM RATIO 2.8 (2.0-3.5)
[2018-10-28 07:24] LABS: ALBUMIN 2.7 gm/dl (3.1-4.5); ALKALINE PHOSPHATASE 111 U/L (45-117); BUN 17 mg/dl (7-24); CHLORIDE 107 mmol/L (98-107); CHOLESTEROL 102 mg/dL (<200); CREATININE 1.04 mg/dL (0.55-1.02); FREE T4 1.36 ng/dl (0.76-1.46); HDL CHOLESTEROL 32 mg/dl (40-60); LDL CHOLESTEROL 40 mg/dL (9-159); PHOSPHOROUS 2.3 mg/dL (2.5-4.9); POTASSIUM 3.9 mmol/L (3.5-5.1); SGOT/AST 247 IU/L (3-35); SGPT/ALT 293 U/L (12-78); SODIUM 141 mmol/L (136-145); TOTAL PROTEIN 5.6 gm/dL (6.4-8.2); TRIGLYCERIDES 148 mg/dl (<150); VLDL CHOLESTEROL 30 mg/dL (6-40)
[2018-10-28 08:00] VITALS: BP 141/56
[2018-10-28 12:00] VITALS: BP 136/60
--- NOTE | 2018-10-28 13:28 | NUR ---
[employer]ter [employer] in to talk to patient. Patient states lives at HOME with . There are BASEMENT steps in the home. Physician: OBEY DRISCOLL Pharmacy: [facility] health services: NONE Patient's level of ADLs: INDEPENDENT Patient has working utilities: YES DME: HAS WALKER AND POTTY CHAIR IF SHE NEEDS THEM Follow-up physician's appointment after d/c: WILL BE MADE BY HOSPITALIST NURSE DIRECTOR ON DISCHARGE Does patient want to access PORTAL?: NO Discharge plan PT STATES SHE LIVES AT HOME ALONE AND IS INDEPENDENT IN CARE. STATES SHE PLANS TO RETURN HOME AND WILL HAVE NO NEEDS. WILL CONTINUE TO FOLLOW. STATES SHE WILL HAVE A RIDE HOME ON DISCHARGE. . PASCUAL HERRERA
[2018-10-28 16:00] VITALS: BP 129/52
--- NOTE | 2018-10-28 16:21 | NUR ---
NOTIFIED DR NEIL THAT PT RETURNED FROM [place] AND WAS REQUESTING TO EAT.AWAITING ORDERS.
[2018-10-28 20:00] VITALS: BP 149/53
[2018-10-29] VITALS: BP 138/48
--- NOTE | 2018-10-29 00:41 | NUR ---
PATIENT MEDICATED WITH TYLENOL FOR TEMP OF 100.6. PATIENT ALSO REQUESTED RESTORIL AT THIS TIME
--- NOTE | 2018-10-29 01:41 | NUR ---
TYLENOL EFFECTIVE FOR INCREASED TEMP. TEMP NOW IS 97.7 ORAL
--- NOTE | 2018-10-29 05:09 | NUR ---
24 HR chart check completed.
[2018-10-29 07:33] LABS: HEMATOCRIT 37.8 % (37.0-47.0); HEMOGLOBIN 11.9 g/dl (12.0-16.0); MEAN CELL VOLUME 89.8 fl (81.0-99.0); MEAN CORPUSCULAR HGB 28.3 pg (27.0-31.0); MEAN CORPUSCULAR HGB CONC 31.5 g/dl (33.0-37.0); MEAN PLATELET VOLUME 12.4 fl (9.6-12.3); PLATELET COUNT AUTOMATED 135 10*3/uL (130-400); RED BLOOD COUNT 4.21 10*6/uL (4.10-5.10); RED CELL DISTRI WIDTH 14.1 % (0-14.5)
[2018-10-29 07:40] LABS: INTERNATIONAL NORM RATIO 3.5 (2.0-3.5)
[2018-10-29 08:00] VITALS: BP 146/58
[2018-10-29 08:10] LABS: HEPATITIS B SURFACE AG Negative (Negative); HEPATITIS C VIRUS ANTIBODY <0.1 s/co (0.0-0.9)
[2018-10-29 08:24] LABS: BUN 12 mg/dl (7-24); CHLORIDE 104 mmol/L (98-107); POTASSIUM 3.7 mmol/L (3.5-5.1); SODIUM 138 mmol/L (136-145)
[2018-10-29 08:25] LABS: CREATININE 0.86 mg/dL (0.55-1.02); PHOSPHOROUS 2.4 mg/dL (2.5-4.9)
[2018-10-29 08:40] LABS: PLATELET SUFFICIENCY NORMAL (NORMAL); TOTAL CELLS COUNTED 100 #CELLS
--- NOTE | 2018-10-29 11:31 | NUR ---
PT CONTINUES TO DENY HOME NEEDS WILL CONTINUE TO FOLLOW.
[2018-10-29 12:00] VITALS: BP 135/60
[2018-10-29 16:00] VITALS: BP 130/64
[2018-10-29 20:00] VITALS: BP 146/56
[2018-10-30] VITALS: BP 143/54
--- NOTE | 2018-10-30 01:03 | NUR ---
Medicated with Restoril po prn for help with sleep. Will monitor effectiveness. Call light within reach.
--- NOTE | 2018-10-30 01:32 | NUR ---
24 HR chart check completed.
[2018-10-30 06:30] LABS: HEMATOCRIT 37.3 % (37.0-47.0); HEMOGLOBIN 11.6 g/dl (12.0-16.0); MEAN CELL VOLUME 89.7 fl (81.0-99.0); MEAN CORPUSCULAR HGB 27.9 pg (27.0-31.0); MEAN CORPUSCULAR HGB CONC 31.1 g/dl (33.0-37.0); MEAN PLATELET VOLUME 12.5 fl (9.6-12.3); PLATELET COUNT AUTOMATED 126 10*3/uL (130-400); RED BLOOD COUNT 4.16 10*6/uL (4.10-5.10)
[2018-10-30 06:39] LABS: BUN 11 mg/dl (7-24); CHLORIDE 106 mmol/L (98-107); CREATININE 0.85 mg/dL (0.55-1.02); POTASSIUM 4.2 mmol/L (3.5-5.1); SODIUM 139 mmol/L (136-145)
[2018-10-30 06:57] LABS: INTERNATIONAL NORM RATIO 3.2 (2.0-3.5)
[2018-10-30 07:40] LABS: PLATELET SUFFICIENCY LOW (NORMAL); TOTAL CELLS COUNTED 100 #CELLS
[2018-10-30 07:41] LABS: BURR CELLS FEW
[2018-10-30 08:00] VITALS: BP 152/61
--- NOTE | 2018-10-30 08:34 | NUR ---
24 HR chart check completed.
[2018-10-30 12:00] VITALS: BP 128/62
--- NOTE | 2018-10-30 12:00 | NUR ---
DR HOWARD PRESENT ON FLOOR TO ASSESS PATIENT AND DISCUSS PLAN OF CARE
--- NOTE | 2018-10-30 12:21 | NUR ---
MEDICATED WITH ZOFRAN IV PER PRN ORDER FOR NAUSEA. WILL MONITOR
--- NOTE | 2018-10-30 12:30 | NUR ---
PULSE OX 80'S ON ROOM AIR. O2 APPLIED AT 3L, PATIENT INSTRUCTED TO DEEP BREATH. PULSE OX 93%. DR HOWARD INFORMED
--- NOTE | 2018-10-30 14:00 | NUR ---
STATES RELIEF FROM ZOFRAN
[2018-10-30 16:00] VITALS: BP 145/58
[2018-10-30 20:00] VITALS: BP 120/49
--- NOTE | 2018-10-30 21:40 | NUR ---
PT C/O INSOMNIA AND RESTLESSNESS. ALSO NOTED TO HAVE FEVER OF 100.0. TYLENOL 650 MG PO GIVEN AT THIS TIME. RESTORIL GIVEN. WILL MONITOR FOR EFFECTIVENESS. CALL LIGHT IN REACH.
--- NOTE | 2018-10-30 22:00 | NUR ---
PT REFUSES HUMALOG COVERAGE FOR BLOOD SUGAR OF 248. LANTUS GIVEN PER ORDERS. WILL CONTINUE TO MONITOR. CALL LIGHT IN REACH.
[2018-10-31] VITALS: BP 126/61
--- NOTE | 2018-10-31 01:52 | NUR ---
TYLENOL EFFECTIVE. PT TEMPERATURE NOW 98.4. PT RESTING IN BED WITH NO COMPLAINTS AT THIS TIME.
[2018-10-31 07:10] LABS: INTERNATIONAL NORM RATIO 2.8 (2.0-3.5)
[2018-10-31 08:00] VITALS: BP 134/51
--- NOTE | 2018-10-31 08:51 | NUR ---
24 HR chart check completed.
--- NOTE | 2018-10-31 10:00 | NUR ---
RESTING IN BED. RESPIRATIONS EASY. LUNGS DIMINISHED WITH COARSE WHEEZES. HARSH COUGH NOTED, PATIENT CLAIMS PRODUCTIVE FOR YELLOW/GREEN. CALL LIGHT WITHIN REACH. NO VOICED COMPLAINTS
--- NOTE | 2018-10-31 10:00 | NUR ---
DR HOWARD PRESENT ON FLOOR TO ASSESS PATIENT AND DISCUSS PLAN OF CARE
[2018-10-31 12:00] VITALS: BP 121/57
--- NOTE | 2018-10-31 12:00 | NUR ---
PULSE OX 88% RA. O2 REAPPLIED AT 3L, PATIENT ENCOURAGED TO DEEP BREATH. PULSE OX 93%
[2018-10-31 16:00] VITALS: BP 143/64
--- NOTE | 2018-10-31 17:00 | NUR ---
RESTING IN BED. RESPIRATIONS EASY. PULSE OX 93% 3L. CALL LIGHT WITHIN REACH. NO VOICED COMPLAINTS
[2018-10-31 20:00] VITALS: BP 147/57
--- NOTE | 2018-10-31 22:00 | NUR ---
RESTING WITH EYES CLOSED. RESPIRATIONS EASY. O2 IN USE. CALL LIGHT WITHIN REACH
[2018-11-01] VITALS: BP 145/58
--- NOTE | 2018-11-01 00:57 | NUR ---
PRN RESTORIL GIVEN FOR PT COMPLAINTS OF SLEEPLESSNESS. CALL LIGHT WITHIN REACH, WILL MONITOR
[2018-11-01 06:20] LABS: HEMATOCRIT 36.6 % (37.0-47.0); HEMOGLOBIN 11.5 g/dl (12.0-16.0); MEAN CELL VOLUME 89.3 fl (81.0-99.0); MEAN CORPUSCULAR HGB CONC 31.4 g/dl (33.0-37.0); MEAN PLATELET VOLUME 12.1 fl (9.6-12.3); PLATELET COUNT AUTOMATED 181 10*3/uL (130-400); RED CELL DISTRI WIDTH 13.8 % (0-14.5); WHITE BLOOD COUNT 9.8 10*3/uL (4.8-10.8)
[2018-11-01 06:40] LABS: INTERNATIONAL NORM RATIO 2.5 (2.0-3.5)
[2018-11-01 06:42] LABS: BUN 17 mg/dl (7-24); CHLORIDE 103 mmol/L (98-107); CREATININE 0.91 mg/dL (0.55-1.02); SODIUM 134 mmol/L (136-145)
[2018-11-01 07:04] LABS: PLATELET SUFFICIENCY NORMAL (NORMAL); TOTAL CELLS COUNTED 100 #CELLS
--- NOTE | 2018-11-01 07:30 | NUR ---
BEDSIDE REPORT OBTAINED FROM ABEBA. PATIENT IS RESTING IN BED, EYES CLOSED. NO S&S OF DISTRESS NOTED, RESP ARE ERND ON ROOM AIR. BED IS LOCKED IN LOWEST POSITION, CALL LIGHT LEFT WITHIN REACH.
[2018-11-01 08:00] VITALS: BP 136/57
--- NOTE | 2018-11-01 11:40 | NUR ---
PT CONTINUES TO DENY HOME NEEDS. WILL CONTNUE TO FOLLOW.
--- NOTE | 2018-11-01 11:59 | NUR ---
INFORMED THAT PATIENT WAS WEANED OFF O2 FOR DISCHARGE AND WAS NOT TOLERATING, SATS WERE 87%. STATED OK.
[2018-11-01 12:00] VITALS: BP 132/57
--- NOTE | 2018-11-01 12:00 | NUR ---
HOME O2 ASSESSMENT: ROOM AIR AT REST: SPO2 87% HR 62 RR 20 BP 132/57 2L NC AT REST: SPO2 95% HR 62 RR 20 2L NC WITH AMBULATION: SPO2 93-95% HR 74-82 RR 20-24 RECOVERY WITH 2L NC: SPO2 94% HR 80 RR 20 BP 156/68
--- NOTE | 2018-11-01 12:30 | NUR ---
Hep Lock discontinued TO R ARM. Site symptomatic, OCCLUDED. Pressure applied. Sterile dressing applied. AELKSANDAR BLANTON
--- NOTE | 2018-11-01 12:30 | NUR ---
IV started left wrist with #22 angiocath after 1 attempts. The IV site was prepped with Chloraprep. Heparin lock attached. Sterile dressing applied. Patient tolerated precedure well. Procedure performed according to [facility] policy & procedure. ALEKSANDAR BLANTON
[2018-11-01] MEDS ORDERED: PREDNISONE10 MG PO (13:43)
[2018-11-01] MEDS ORDERED: LEVAQUIN500 M2 PO (13:43)
--- NOTE | 2018-11-01 17:02 | NUR ---
Discharge instructions reviewed with patient/family. Patient receptive and verbalizes understanding. Follow-up care arranged. Written instructions given to patient/FAMILY. IV CATHETER RMOVED. ALEKSANDAR BLANTON
== END 2018-11-01 17:02 | disposition home or self-care (01) | DRG 193 ==
LOC: ED 17:04 → 5E 19:43 → EDHOLD 19:43 → 5E 20:16
PROVIDERS: Internal Medicine; Physician Assistant; ADMIT Internal Medicine
DX: J10.1 Influenza due to other identified influenza virus with other respiratory manifestations (principal); N17.0 Acute kidney failure with tubular necrosis; E44.1 Mild protein-calorie malnutrition; E87.1 Hypo-osmolality and hyponatremia; D84.9 Immunodeficiency, unspecified; I82.502 Chronic embolism and thrombosis of unspecified deep veins of left lower extremity; Q87.81 Alport syndrome; E11.65 Type 2 diabetes mellitus with hyperglycemia; I25.10 Atherosclerotic heart disease of native coronary artery without angina pectoris; N18.3 Chronic kidney disease, stage 3 (moderate); E78.5 Hyperlipidemia, unspecified; I12.9 Hypertensive chronic kidney disease with stage 1 through stage 4 chronic kidney disease, or unspecified chronic kidney disease; E66.01 Morbid (severe) obesity due to excess calories; E11.22 Type 2 diabetes mellitus with diabetic chronic kidney disease; E55.9 Vitamin D deficiency, unspecified; K76.0 Fatty (change of) liver, not elsewhere classified; R09.02 Hypoxemia; Z68.35 Body mass index [BMI] 35.0-35.9, adult; Z88.6 Allergy status to analgesic agent; Z88.8 Allergy status to other drugs, medicaments and biological substances; Z79.01 Long term (current) use of anticoagulants; Z79.899 Other long term (current) drug therapy; Z90.49 Acquired absence of other specified parts of digestive tract; Z98.891 History of uterine scar from previous surgery; Z80.1 Family history of malignant neoplasm of trachea, bronchus and lung; Z82.49 Family history of ischemic heart disease and other diseases of the circulatory system; Z79.82 Long term (current) use of aspirin

== ENCOUNTER → 2019-06-07 | Outpatient (CLI) | payer OTHER ==
[~2019-06-07] MED LIST changes: +AMITRIPTYLINE10 MG PO; +ASPIRIN ADULT L81 M1 PO; +KLOR-CON M2020 ME1 PO; +LEVAQUIN500 M2 PO; +PACERONE200 MG PO; +PREDNISONE10 MG PO; +SENNA-S TABLET1 EACH PO; +VERELAN PM PO
== END | disposition home or self-care (01) ==
LOC: RESCLI 00:45
DX: Z23 Encounter for immunization (principal); J02.9 Acute pharyngitis, unspecified; Q87.81 Alport syndrome; E11.9 Type 2 diabetes mellitus without complications; I10 Essential (primary) hypertension; F33.41 Major depressive disorder, recurrent, in partial remission; I48.0 Paroxysmal atrial fibrillation; I82.532 Chronic embolism and thrombosis of left popliteal vein; E78.2 Mixed hyperlipidemia; I25.10 Atherosclerotic heart disease of native coronary artery without angina pectoris; I25.2 Old myocardial infarction; G43.019 Migraine without aura, intractable, without status migrainosus; E03.9 Hypothyroidism, unspecified; Z94.0 Kidney transplant status; Z76.89 Persons encountering health services in other specified circumstances; Z79.4 Long term (current) use of insulin; Z79.82 Long term (current) use of aspirin; Z79.899 Other long term (current) drug therapy; Z79.02 Long term (current) use of antithrombotics/antiplatelets; Z90.49 Acquired absence of other specified parts of digestive tract

== ENCOUNTER → 2019-07-13 | Outpatient (CLI) | payer OTHER | END | disposition home or self-care (01) | LOC: RESCLI 02:06 | DX: F33.41 Major depressive disorder, recurrent, in partial remission (principal); I48.0 Paroxysmal atrial fibrillation; I82.532 Chronic embolism and thrombosis of left popliteal vein; E78.2 Mixed hyperlipidemia; G43.019 Migraine without aura, intractable, without status migrainosus; E03.9 Hypothyroidism, unspecified; Q87.81 Alport syndrome; I25.10 Atherosclerotic heart disease of native coronary artery without angina pectoris; E11.9 Type 2 diabetes mellitus without complications; D64.9 Anemia, unspecified; Z79.899 Other long term (current) drug therapy; Z90.49 Acquired absence of other specified parts of digestive tract; Z90.89 Acquired absence of other organs ==

== ENCOUNTER → 2019-09-22 | Outpatient (CLI) | payer OTHER | END | disposition home or self-care (01) | LOC: RESCLI 00:49 | DX: Z12.39 Encounter for other screening for malignant neoplasm of breast (principal); Z95.5 Presence of coronary angioplasty implant and graft; E11.9 Type 2 diabetes mellitus without complications; Q87.81 Alport syndrome; I10 Essential (primary) hypertension; F33.41 Major depressive disorder, recurrent, in partial remission; I48.0 Paroxysmal atrial fibrillation; I25.10 Atherosclerotic heart disease of native coronary artery without angina pectoris; J06.9 Acute upper respiratory infection, unspecified; E78.5 Hyperlipidemia, unspecified; E03.9 Hypothyroidism, unspecified; Z94.0 Kidney transplant status; Z79.899 Other long term (current) drug therapy; Z90.89 Acquired absence of other organs; Z90.49 Acquired absence of other specified parts of digestive tract; Z88.8 Allergy status to other drugs, medicaments and biological substances; Z79.4 Long term (current) use of insulin ==

== ENCOUNTER → 2019-11-03 | Outpatient (CLI) | payer OTHER, MEDICAID ==
[2019-11-03 08:54] LABS: BASO % 0.4 % (0.0-1.0); EOS # 0.3 10*3/uL (0.0-0.4); EOS % 3.5 % (1.0-4.0); HEMATOCRIT 43.2 % (37.0-47.0); HEMOGLOBIN 13.5 g/dl (12.0-16.0); LYMPH # 1.2 10*3/uL (1.3-4.4); MEAN CELL VOLUME 92.5 fl (81.0-99.0); MEAN CORPUSCULAR HGB 28.9 pg (27.0-31.0); MEAN CORPUSCULAR HGB CONC 31.3 g/dl (33.0-37.0); MEAN PLATELET VOLUME 12.5 fl (9.6-12.3); MONO # 0.6 10*3/uL (0.1-1.0); NEUT # 4.9 10*3/uL (2.3-7.9); NEUT % 69.7 % (47.0-73.0); PLATELET COUNT AUTOMATED 173 10*3/uL (130-400); RED BLOOD COUNT 4.67 10*6/uL (4.10-5.10); RED CELL DISTRI WIDTH 13.2 % (0-14.5); WHITE BLOOD COUNT 7.1 10*3/uL (4.8-10.8)
[2019-11-03 09:03] LABS: INTERNATIONAL NORM RATIO 2.1 (2.0-3.5)
[2019-11-03 09:23] LABS: ALBUMIN 3.5 gm/dl (3.1-4.5); CREATININE 1.31 mg/dL (0.55-1.02); PHOSPHOROUS 3.4 mg/dL (2.5-4.9); POTASSIUM 3.9 mmol/L (3.5-5.1); TOTAL PROTEIN 6.7 gm/dL (6.4-8.2); URIC ACID 4.6 mg/dL (2.6-6.0)
[2019-11-03 09:32] LABS: BILIRUBIN NEGATIVE (NEGATIVE); BLOOD NEGATIVE (NEGATIVE); CLARITY CLOUDY (CLEAR); COLOR YELLOW (YELLOW); GLUCOSE NEGATIVE (NEGATIVE); KETONE NEGATIVE (NEGATIVE); LEUKO ESTERASE TRACE (NEGATIVE); NITRITE NEGATIVE (NEGATIVE); SPECIFIC GRAVITY 1.015 (1.005-1.030); UROBILINOGEN 0.2 E.U./dl (0.2-1.0)
[2019-11-03 09:33] LABS: BACTERIA 2+
[2019-11-03 09:35] LABS: EPITHELIAL CELLS 15-20
[2019-11-03 11:26] LABS: VITAMIN D, 25-HYDROXY 33.4 ng/mL (30-100)
[2019-11-03 11:27] LABS: PTH INTACT 124.2 pg/mL (18.5-88.0)
[2019-11-04 08:12] LABS: CREATINE KINASE, TOTAL, SERUM 74 U/L (24-173)
[2019-11-04 16:12] LABS: CK-BB 0 % (0); CK-MB 0 % (0-3); CK-MM 100 % (97-100); MACRO TYPE 1 0 % (Not Observed); MACRO TYPE 2 0 % (Not Observed)
== END | disposition home or self-care (01) ==
LOC: LAB 08:20
PROVIDERS: Hospitalist
DX: E11.9 Type 2 diabetes mellitus without complications (principal); I48.0 Paroxysmal atrial fibrillation; Z94.0 Kidney transplant status

== ENCOUNTER → 2020-03-21 | Outpatient (CLI) | payer OTHER | END | disposition home or self-care (01) | LOC: RESCLI 10:20 | DX: R29.6 Repeated falls (principal); Q87.81 Alport syndrome; E11.9 Type 2 diabetes mellitus without complications; I25.10 Atherosclerotic heart disease of native coronary artery without angina pectoris; I10 Essential (primary) hypertension; I48.0 Paroxysmal atrial fibrillation; E78.5 Hyperlipidemia, unspecified; E03.9 Hypothyroidism, unspecified; I82.532 Chronic embolism and thrombosis of left popliteal vein; F32.9 Major depressive disorder, single episode, unspecified; Z94.0 Kidney transplant status; Z79.899 Other long term (current) drug therapy; Z98.890 Other specified postprocedural states; Z95.5 Presence of coronary angioplasty implant and graft; Z90.49 Acquired absence of other specified parts of digestive tract; Z88.8 Allergy status to other drugs, medicaments and biological substances ==

== ENCOUNTER → 2020-06-04 | Outpatient (CLI) | payer OTHER ==
[2020-06-04 09:16] LABS: BASO % 0.3 % (0.0-1.0); EOS # 0.1 10*3/uL (0.0-0.4); EOS % 2.3 % (1.0-4.0); HEMATOCRIT 44.5 % (37.0-47.0); LYMPH # 1.3 10*3/uL (1.3-4.4); LYMPH % 21.1 % (27.0-41.0); MEAN CELL VOLUME 87.8 fl (81.0-99.0); MEAN CORPUSCULAR HGB 27.2 pg (27.0-31.0); MEAN PLATELET VOLUME 12.6 fl (9.6-12.3); MONO # 0.6 10*3/uL (0.1-1.0); MONO % 9.2 % (3.0-9.0); NEUT # 4.1 10*3/uL (2.3-7.9); NEUT % 66.8 % (47.0-73.0); PLATELET COUNT AUTOMATED 181 10*3/uL (130-400); RED BLOOD COUNT 5.07 10*6/uL (4.10-5.10); RED CELL DISTRI WIDTH 13.9 % (0-14.5); WHITE BLOOD COUNT 6.2 10*3/uL (4.8-10.8)
[2020-06-04 09:23] LABS: BILIRUBIN Negative (Negative); BLOOD Negative (Negative); CLARITY Turbid (Clear); COLOR Yellow (Yellow); GLUCOSE Negative (Negative); KETONE Negative (Negative); LEUKO ESTERASE Trace (Negative); NITRITE Negative (Negative); PH 7.5 (4.5-8.0)
[2020-06-04 09:33] LABS: ALBUMIN 3.4 gm/dl (3.1-4.5); CREATININE 1.26 mg/dL (0.55-1.02); POTASSIUM 4.3 mmol/L (3.5-5.1); URIC ACID 3.9 mg/dL (2.6-6.0)
[2020-06-04 10:20] LABS: BACTERIA 2+; COARSE GRANULAR CAST 21-30; EPITHELIAL CELLS 21-30
[2020-06-05 08:11] LABS: CREATINE KINASE, TOTAL, SERUM 68 U/L (32-182)
[2020-06-05 13:06] LABS: CK-BB 0 % (0); CK-MB 0 % (0-3); CK-MM 98 % (97-100); MACRO TYPE 1 2 % (Not Observed); MACRO TYPE 2 0 % (Not Observed)
== END | disposition home or self-care (01) ==
LOC: LAB 08:24
PROVIDERS: ATTEND Internal Medicine Nephrology
DX: Z94.0 Kidney transplant status (principal)

== ENCOUNTER → 2020-07-03 | Outpatient (CLI) | payer OTHER | END | disposition home or self-care (01) | LOC: RESCLI 02:23 | PROVIDERS: ATTEND Internal Medicine | DX: Z12.4 Encounter for screening for malignant neoplasm of cervix (principal); I48.0 Paroxysmal atrial fibrillation; E78.5 Hyperlipidemia, unspecified; E11.9 Type 2 diabetes mellitus without complications; F32.9 Major depressive disorder, single episode, unspecified; I25.10 Atherosclerotic heart disease of native coronary artery without angina pectoris; E03.9 Hypothyroidism, unspecified; R29.6 Repeated falls; Z95.5 Presence of coronary angioplasty implant and graft; Z94.0 Kidney transplant status ==

== ENCOUNTER → 2020-08-27 | Outpatient (CLI) | payer OTHER ==
[2020-08-27 08:59] LABS: BILIRUBIN Negative (Negative); BLOOD Negative (Negative); CLARITY Cloudy (Clear); COLOR Yellow (Yellow); GLUCOSE Negative (Negative); KETONE Negative (Negative); LEUKO ESTERASE Negative (Negative); NITRITE Negative (Negative); PH 7.5 (4.5-8.0)
[2020-08-27 09:03] LABS: BASO % 0.5 % (0.0-1.0); EOS # 0.1 10*3/uL (0.0-0.4); EOS % 1.7 % (1.0-4.0); HEMATOCRIT 43.5 % (37.0-47.0); LYMPH # 1.4 10*3/uL (1.3-4.4); LYMPH % 21.7 % (27.0-41.0); MEAN CELL VOLUME 89.5 fl (81.0-99.0); MEAN CORPUSCULAR HGB 27.6 pg (27.0-31.0); MEAN CORPUSCULAR HGB CONC 30.8 g/dl (33.0-37.0); MONO # 0.7 10*3/uL (0.1-1.0); MONO % 10.6 % (3.0-9.0); NEUT # 4.3 10*3/uL (2.3-7.9); NEUT % 65.2 % (47.0-73.0); PLATELET COUNT AUTOMATED 172 10*3/uL (130-400); RED BLOOD COUNT 4.86 10*6/uL (4.10-5.10); RED CELL DISTRI WIDTH 13.6 % (0-14.5); WHITE BLOOD COUNT 6.6 10*3/uL (4.8-10.8)
[2020-08-27 09:26] LABS: BACTERIA 3+; EPITHELIAL CELLS 16-20
[2020-08-27 09:39] LABS: ALBUMIN 3.3 gm/dl (3.1-4.5); CREATININE 1.27 mg/dL (0.55-1.02); URIC ACID 4.1 mg/dL (2.6-6.0)
== END | disposition home or self-care (01) ==
LOC: LAB 08:18
PROVIDERS: ATTEND Internal Medicine Nephrology
DX: Z94.0 Kidney transplant status (principal)

== ENCOUNTER → 2020-09-14 | Outpatient (CLI) | payer OTHER | END | disposition home or self-care (01) | LOC: COVID19 14:44 | PROVIDERS: ATTEND Hospitalist | DX: U07.1 COVID-19 (principal) ==

== ENCOUNTER → 2020-10-29 | Outpatient (CLI) | payer OTHER ==
[2020-10-29 09:14] LABS: BILIRUBIN Negative (Negative); BLOOD Negative (Negative); CLARITY Cloudy (Clear); COLOR Yellow (Yellow); GLUCOSE Negative (Negative); KETONE Trace (Negative); LEUKO ESTERASE 1+ (Negative); NITRITE Negative (Negative); PH 6.5 (4.5-8.0); SPECIFIC GRAVITY 1.025 (1.001-1.030)
[2020-10-29 09:23] LABS: BACTERIA 3+
[2020-10-29 09:24] LABS: EPITHELIAL CELLS TNTC
[2020-10-29 09:25] LABS: BASO % 0.6 % (0.0-1.0); EOS # 0.1 10*3/uL (0.0-0.4); EOS % 1.7 % (1.0-4.0); LYMPH # 1.2 10*3/uL (1.3-4.4); LYMPH % 16.6 % (27.0-41.0); MEAN CELL VOLUME 87.8 fl (81.0-99.0); MEAN CORPUSCULAR HGB CONC 31.9 g/dl (33.0-37.0); MEAN PLATELET VOLUME 12.5 fl (9.6-12.3); MONO # 0.7 10*3/uL (0.1-1.0); MONO % 9.6 % (3.0-9.0); NEUT # 5.1 10*3/uL (2.3-7.9); NEUT % 71.2 % (47.0-73.0); PLATELET COUNT AUTOMATED 180 10*3/uL (130-400); RED CELL DISTRI WIDTH 14.2 % (0-14.5); WHITE BLOOD COUNT 7.1 10*3/uL (4.8-10.8)
[2020-10-29 09:48] LABS: POTASSIUM 4.2 mmol/L (3.5-5.1)
[2020-10-29 10:07] LABS: ALBUMIN 3.2 gm/dl (3.1-4.5); CREATININE 1.33 mg/dL (0.55-1.02); URIC ACID 4.2 mg/dL (2.6-6.0)
== END | disposition home or self-care (01) ==
LOC: LAB 08:42
PROVIDERS: ATTEND Internal Medicine Nephrology
DX: Z94.0 Kidney transplant status (principal)

== ENCOUNTER → 2020-11-19 | Outpatient (CLI) | payer OTHER | END | disposition home or self-care (01) | LOC: RESCLI 00:25 | PROVIDERS: ATTEND Internal Medicine Nephrology | DX: K59.00 Constipation, unspecified (principal); I48.0 Paroxysmal atrial fibrillation; E78.5 Hyperlipidemia, unspecified; F33.41 Major depressive disorder, recurrent, in partial remission; I10 Essential (primary) hypertension; E11.9 Type 2 diabetes mellitus without complications; I25.10 Atherosclerotic heart disease of native coronary artery without angina pectoris; E03.9 Hypothyroidism, unspecified; R27.0 Ataxia, unspecified; Z94.0 Kidney transplant status; Z12.31 Encounter for screening mammogram for malignant neoplasm of breast; Z95.5 Presence of coronary angioplasty implant and graft; Z79.899 Other long term (current) drug therapy; Z95.828 Presence of other vascular implants and grafts; Z90.49 Acquired absence of other specified parts of digestive tract; Z98.890 Other specified postprocedural states ==

== ENCOUNTER → 2021-01-03 | Outpatient (CLI) | payer OTHER ==
[2021-01-03 09:56] LABS: BASO % 0.5 % (0.0-1.0); EOS # 0.1 10*3/uL (0.0-0.4); EOS % 1.5 % (1.0-4.0); HEMATOCRIT 44.1 % (37.0-47.0); LYMPH # 1.2 10*3/uL (1.3-4.4); LYMPH % 20.2 % (27.0-41.0); MEAN CELL VOLUME 87.2 fl (81.0-99.0); MEAN CORPUSCULAR HGB 28.1 pg (27.0-31.0); MEAN CORPUSCULAR HGB CONC 32.2 g/dl (33.0-37.0); MEAN PLATELET VOLUME 12.6 fl (9.6-12.3); MONO # 0.6 10*3/uL (0.1-1.0); MONO % 10.3 % (3.0-9.0); NEUT # 4.1 10*3/uL (2.3-7.9); NEUT % 67.2 % (47.0-73.0); PLATELET COUNT AUTOMATED 186 10*3/uL (130-400); RED BLOOD COUNT 5.06 10*6/uL (4.10-5.10); RED CELL DISTRI WIDTH 13.6 % (0-14.5)
[2021-01-03 09:58] LABS: BILIRUBIN Negative (Negative); BLOOD Negative (Negative); CLARITY Cloudy (Clear); COLOR Yellow (Yellow); GLUCOSE Negative (Negative); KETONE Negative (Negative); LEUKO ESTERASE Negative (Negative); NITRITE Negative (Negative)
[2021-01-03 10:07] LABS: ALBUMIN 3.4 gm/dl (3.1-4.5); CREATININE 1.21 mg/dL (0.55-1.02); POTASSIUM 4.2 mmol/L (3.5-5.1); URIC ACID 3.9 mg/dL (2.6-6.0)
[2021-01-03 10:16] LABS: BACTERIA 3+; EPITHELIAL CELLS 16-20
== END | disposition home or self-care (01) ==
LOC: LAB 09:01
PROVIDERS: ATTEND Internal Medicine Nephrology
DX: Z94.0 Kidney transplant status (principal)

== ENCOUNTER → 2021-01-29 | Outpatient (CLI) | payer MEDICAID | END | disposition home or self-care (01) | LOC: RESCLI 13:04 | PROVIDERS: ATTEND Hospitalist | DX: E11.9 Type 2 diabetes mellitus without complications (principal); I11.0 Hypertensive heart disease with heart failure; I50.32 Chronic diastolic (congestive) heart failure; E03.9 Hypothyroidism, unspecified; I25.10 Atherosclerotic heart disease of native coronary artery without angina pectoris; F32.9 Major depressive disorder, single episode, unspecified; R27.0 Ataxia, unspecified; Q87.81 Alport syndrome; I48.0 Paroxysmal atrial fibrillation; E78.5 Hyperlipidemia, unspecified; Z94.0 Kidney transplant status; Z95.5 Presence of coronary angioplasty implant and graft; Z79.899 Other long term (current) drug therapy; Z95.828 Presence of other vascular implants and grafts; Z90.49 Acquired absence of other specified parts of digestive tract; Z88.8 Allergy status to other drugs, medicaments and biological substances ==

== ENCOUNTER → 2021-02-20 | Outpatient (CLI) | payer OTHER | END | disposition home or self-care (01) | LOC: MRI 10:50 | PROVIDERS: ATTEND Psychiatry & Neurology Neurology | DX: I65.23 Occlusion and stenosis of bilateral carotid arteries (principal); R27.0 Ataxia, unspecified ==

== ENCOUNTER → 2021-03-06 | Outpatient (CLI) | payer OTHER ==
[2021-03-06 08:50] LABS: BASO % 0.5 % (0.0-1.0); EOS # 0.1 10*3/uL (0.0-0.4); EOS % 2.1 % (1.0-4.0); HEMATOCRIT 44.2 % (37.0-47.0); LYMPH # 1.4 10*3/uL (1.3-4.4); LYMPH % 21.6 % (27.0-41.0); MEAN CELL VOLUME 87.7 fl (81.0-99.0); MEAN CORPUSCULAR HGB 27.2 pg (27.0-31.0); MEAN PLATELET VOLUME 11.6 fl (9.6-12.3); MONO # 0.6 10*3/uL (0.1-1.0); MONO % 10.1 % (3.0-9.0); NEUT # 4.1 10*3/uL (2.3-7.9); NEUT % 65.4 % (47.0-73.0); PLATELET COUNT AUTOMATED 163 10*3/uL (130-400); RED BLOOD COUNT 5.04 10*6/uL (4.10-5.10); RED CELL DISTRI WIDTH 14.2 % (0-14.5); WHITE BLOOD COUNT 6.3 10*3/uL (4.8-10.8)
[2021-03-06 09:16] LABS: BILIRUBIN Negative (Negative); BLOOD Negative (Negative); CLARITY Turbid (Clear); COLOR Yellow (Yellow); GLUCOSE Negative (Negative); KETONE Negative (Negative); LEUKO ESTERASE Negative (Negative); NITRITE Negative (Negative); PH 7.5 (4.5-8.0)
[2021-03-06 09:34] LABS: PTH INTACT 169.4 pg/mL (18.5-88.0)
[2021-03-06 09:38] LABS: ALBUMIN 3.4 gm/dl (3.1-4.5); CREATININE 1.24 mg/dL (0.55-1.02); POTASSIUM 4.1 mmol/L (3.5-5.1); URIC ACID 4.4 mg/dL (2.6-6.0)
[2021-03-06 09:41] LABS: ALBUMIN 3.4 gm/dl (3.1-4.5); CREATININE 1.22 mg/dL (0.55-1.02); POTASSIUM 4.1 mmol/L (3.5-5.1); THYROXINE (T4) TOTAL 9.4 ug/dl (4.8-13.9); TOTAL PROTEIN 6.9 gm/dL (6.4-8.2)
[2021-03-06 09:47] LABS: THYROID STIM HORMONE (HS) 11.1 uIU/ml (0.358-4.75)
[2021-03-06 11:14] LABS: BACTERIA 2+; EPITHELIAL CELLS 16-20
[2021-03-07 04:07] LABS: TOTAL PROTEIN, SERUM 6.3 g/dL (6.0-8.5)
[2021-03-07 16:09] LABS: ALBUMIN 3.2 g/dL (2.9-4.4); ALPHA-1-GLOBULIN 0.3 g/dL (0.0-0.4); GAMMA GLOBULIN 0.9 g/dL (0.4-1.8); GLOBULIN, TOTAL 3.1 g/dL (2.2-3.9); M-SPIKE Not Observed g/dL (Not Observed)
[2021-03-08 16:08] LABS: MYCOPHENOLIC ACID 3.6 ug/mL (1.0-3.5)
== END | disposition home or self-care (01) ==
LOC: LAB 08:27
PROVIDERS: Psychiatry & Neurology Neurology; ATTEND Internal Medicine Nephrology
DX: E55.9 Vitamin D deficiency, unspecified (principal); R27.0 Ataxia, unspecified; Z94.0 Kidney transplant status

== ENCOUNTER → 2021-05-07 | Outpatient (CLI) | payer OTHER ==
[2021-05-07 09:11] LABS: BASO % 0.3 % (0.0-1.0); EOS # 0.1 10*3/uL (0.0-0.4); EOS % 1.8 % (1.0-4.0); HEMATOCRIT 44.7 % (37.0-47.0); LYMPH # 1.3 10*3/uL (1.3-4.4); LYMPH % 21.9 % (27.0-41.0); MEAN CELL VOLUME 87.6 fl (81.0-99.0); MEAN CORPUSCULAR HGB 27.5 pg (27.0-31.0); MEAN CORPUSCULAR HGB CONC 31.3 g/dl (33.0-37.0); MEAN PLATELET VOLUME 12.8 fl (9.6-12.3); MONO # 0.6 10*3/uL (0.1-1.0); MONO % 9.1 % (3.0-9.0); NEUT % 66.7 % (47.0-73.0); PLATELET COUNT AUTOMATED 161 10*3/uL (130-400); RED CELL DISTRI WIDTH 13.3 % (0-14.5); WHITE BLOOD COUNT 6.1 10*3/uL (4.8-10.8)
[2021-05-07 09:14] LABS: BILIRUBIN Negative (Negative); BLOOD Negative (Negative); CLARITY Clear (Clear); COLOR Yellow (Yellow); GLUCOSE Negative (Negative); KETONE Negative (Negative); LEUKO ESTERASE Negative (Negative); NITRITE Negative (Negative); SPECIFIC GRAVITY 1.015 (1.001-1.030)
[2021-05-07 09:18] LABS: ALBUMIN 3.4 gm/dl (3.1-4.5); CREATININE 1.26 mg/dL (0.55-1.02); POTASSIUM 4.1 mmol/L (3.5-5.1); URIC ACID 3.8 mg/dL (2.6-6.0)
[2021-05-07 09:42] LABS: PTH INTACT 180.1 pg/mL (18.5-88.0); VITAMIN D, 25-HYDROXY 28.2 ng/mL (30-100)
[2021-05-07 10:07] LABS: RBC 0-2 rbc/hpf (0-2); WBC 0-2 wbc/hpf (0-5)
[2021-05-07 10:08] LABS: BACTERIA TRACE
== END | disposition home or self-care (01) ==
LOC: LAB 08:22
PROVIDERS: ATTEND Internal Medicine Nephrology
DX: E55.9 Vitamin D deficiency, unspecified (principal); Z94.0 Kidney transplant status

== ENCOUNTER 2021-08-25 13:00 | Inpatient (IN) | payer OTHER, MEDICAID ==
[2021-08-25] VITALS (8 sets, daily range): BP systolic 174–207; BP diastolic 63–84
[~2021-08-25] VITALS: Ht 165.1 cm; Wt 100.3 kg
[2021-08-25 13:37] LABS: BASO % 0.5 % (0.0-1.0); EOS # 0.2 10*3/uL (0.0-0.4); LYMPH # 1.7 10*3/uL (1.3-4.4); LYMPH % 22.2 % (27.0-41.0); MEAN CELL VOLUME 85.6 fl (81.0-99.0); MEAN CORPUSCULAR HGB 27.9 pg (27.0-31.0); MEAN CORPUSCULAR HGB CONC 32.7 g/dl (33.0-37.0); MEAN PLATELET VOLUME 12.4 fl (9.6-12.3); MONO # 0.8 10*3/uL (0.1-1.0); MONO % 10.2 % (3.0-9.0); NEUT # 4.7 10*3/uL (2.3-7.9); PLATELET COUNT AUTOMATED 160 10*3/uL (130-400); RED BLOOD COUNT 5.26 10*6/uL (4.10-5.10); RED CELL DISTRI WIDTH 13.7 % (0-14.5); WHITE BLOOD COUNT 7.4 10*3/uL (4.8-10.8)
[2021-08-25 13:46] LABS: ACT PARTIAL THROMBO TIME 33.3 SECONDS (20.0-32.1); INTERNATIONAL NORM RATIO 2.5 (2.0-3.5)
[2021-08-25 13:54] LABS: ALBUMIN 3.2 gm/dl (3.1-4.5); CREATININE 1.26 mg/dL (0.55-1.02); POTASSIUM 3.8 mmol/L (3.5-5.1); TOTAL PROTEIN 6.9 gm/dL (6.4-8.2)
[2021-08-25 18:00] LABS: CPK 136 U/L (26-192)
[2021-08-25] MEDS ORDERED: LISINOPRIL2.5 MG PO (21:16)
[2021-08-25] MEDS ORDERED: POTASSIUM CHLO20 ME4 PO (21:17)
[2021-08-25] MEDS ORDERED: SERTRALINE HYD100 MG PO (21:18)
[2021-08-25] MEDS ORDERED: FUROSEMIDE40 MG PO (21:22)
[2021-08-26] VITALS: BP 148/70
[2021-08-26 00:18] LABS: BILIRUBIN Negative (Negative); BLOOD Negative (Negative); CLARITY Cloudy (Clear); COLOR Yellow (Yellow); GLUCOSE 2+ (Negative); KETONE Trace (Negative); LEUKO ESTERASE Negative (Negative); NITRITE Negative (Negative); SPECIFIC GRAVITY 1.025 (1.001-1.030)
[2021-08-26 06:32] LABS: BASO % 0.1 % (0.0-1.0); LYMPH # 0.6 10*3/uL (1.3-4.4); LYMPH % 5.7 % (27.0-41.0); MEAN CELL VOLUME 86.5 fl (81.0-99.0); MEAN CORPUSCULAR HGB 27.7 pg (27.0-31.0); MEAN PLATELET VOLUME 12.4 fl (9.6-12.3); MONO # 0.7 10*3/uL (0.1-1.0); NEUT # 8.6 10*3/uL (2.3-7.9); NEUT % 86.6 % (47.0-73.0); PLATELET COUNT AUTOMATED 168 10*3/uL (130-400); RED CELL DISTRI WIDTH 13.6 % (0-14.5)
[2021-08-26 06:42] LABS: ACT PARTIAL THROMBO TIME 39.4 SECONDS (20.0-32.1); INTERNATIONAL NORM RATIO 2.5 (2.0-3.5)
[2021-08-26 06:54] LABS: ALBUMIN 3.1 gm/dl (3.1-4.5); BUN 18 mg/dl (7-24); CHLORIDE 104 mmol/L (98-107); CHOLESTEROL 173 mg/dL (<200); CREATININE 1.04 mg/dL (0.55-1.02); SGOT/AST 62 IU/L (3-35); SGPT/ALT 64 U/L (12-78); TOTAL PROTEIN 7.2 gm/dL (6.4-8.2); TRIGLYCERIDES 90 mg/dl (<150)
[2021-08-26 07:01] LABS: ALKALINE PHOSPHATASE 126 U/L (45-117); FREE T4 0.94 ng/dl (0.76-1.46); LDL CHOLESTEROL 90 mg/dL (9-159)
[2021-08-26 07:19] LABS: SODIUM 139 mmol/L (136-145)
[2021-08-26 07:50] LABS: VITAMIN D, 25-HYDROXY 26.6 ng/mL (30-100)
[2021-08-26 08:00] VITALS: BP 133/46
[2021-08-26 12:00] VITALS: BP 154/62
[2021-08-26 16:00] VITALS: BP 151/58
[2021-08-26 20:00] VITALS: BP 145/62
[2021-08-27] VITALS: BP 139/62
[2021-08-27 06:28] LABS: BASO % 0.2 % (0.0-1.0); EOS % 0.3 % (1.0-4.0); HEMATOCRIT 43.6 % (37.0-47.0); LYMPH # 0.6 10*3/uL (1.3-4.4); LYMPH % 6.2 % (27.0-41.0); MEAN CELL VOLUME 86.7 fl (81.0-99.0); MEAN CORPUSCULAR HGB 27.4 pg (27.0-31.0); MEAN CORPUSCULAR HGB CONC 31.7 g/dl (33.0-37.0); MEAN PLATELET VOLUME 12.3 fl (9.6-12.3); MONO # 0.8 10*3/uL (0.1-1.0); NEUT # 8.7 10*3/uL (2.3-7.9); NEUT % 84.1 % (47.0-73.0); PLATELET COUNT AUTOMATED 176 10*3/uL (130-400); RED BLOOD COUNT 5.03 10*6/uL (4.10-5.10); WHITE BLOOD COUNT 10.3 10*3/uL (4.8-10.8)
[2021-08-27 06:48] LABS: POTASSIUM 5.1 mmol/L (3.5-5.1)
[2021-08-27 06:51] LABS: CREATININE 1.12 mg/dL (0.55-1.02)
[2021-08-27 08:00] VITALS: BP 156/70; BP 171/67
[2021-08-27 12:00] VITALS: BP 179/56
[2021-08-27 16:00] VITALS: BP 175/61
[2021-08-27 20:00] VITALS: BP 161/59
[2021-08-28] VITALS: BP 163/68
[2021-08-28 08:00] VITALS: BP 157/63
[2021-08-28 12:00] VITALS: BP 154/63
[2021-08-28] MEDS ORDERED: HYDROCODONE-AC1 EAC1 PO (13:19)
[2021-08-28] MEDS ORDERED: Humalog SQ (13:20)
== END 2021-08-28 17:10 | DRG 155 ==
LOC: ED 13:00 → EDHOLD 17:39 → 5E 17:39 → EDHOLD 18:47 → 5E 19:28
PROVIDERS: Emergency Medicine; Family Medicine; Internal Medicine; ADMIT Internal Medicine; ATTEND Internal Medicine
DX: S02.2XXA Fracture of nasal bones, initial encounter for closed fracture (principal); Z94.0 Kidney transplant status; D84.9 Immunodeficiency, unspecified; I82.509 Chronic embolism and thrombosis of unspecified deep veins of unspecified lower extremity; I25.810 Atherosclerosis of coronary artery bypass graft(s) without angina pectoris; S00.10XA Contusion of unspecified eyelid and periocular area, initial encounter; S00.83XA Contusion of other part of head, initial encounter; S80.212A Abrasion, left knee, initial encounter; I16.0 Hypertensive urgency; I12.9 Hypertensive chronic kidney disease with stage 1 through stage 4 chronic kidney disease, or unspecified chronic kidney disease; E11.22 Type 2 diabetes mellitus with diabetic chronic kidney disease; E11.65 Type 2 diabetes mellitus with hyperglycemia; N18.32 Chronic kidney disease, stage 3b; Z79.4 Long term (current) use of insulin; E66.01 Morbid (severe) obesity due to excess calories; E03.9 Hypothyroidism, unspecified; E78.5 Hyperlipidemia, unspecified; W10.9XXA Fall (on) (from) unspecified stairs and steps, initial encounter; Y93.89 Activity, other specified; Y92.89 Other specified places as the place of occurrence of the external cause; Y99.8 Other external cause status; Z68.36 Body mass index [BMI] 36.0-36.9, adult; Z90.49 Acquired absence of other specified parts of digestive tract; Z80.1 Family history of malignant neoplasm of trachea, bronchus and lung; Z82.49 Family history of ischemic heart disease and other diseases of the circulatory system; Z88.6 Allergy status to analgesic agent; Z88.8 Allergy status to other drugs, medicaments and biological substances; Z79.82 Long term (current) use of aspirin; Z79.899 Other long term (current) drug therapy; S00.11XA Contusion of right eyelid and periocular area, initial encounter; S61.412A Laceration without foreign body of left hand, initial encounter

== ENCOUNTER 2021-10-27 15:32 | Emergency (ER) | payer OTHER, MEDICAID ==
[~2021-10-27 15:32] MED LIST changes: +FUROSEMIDE40 MG PO; +HYDROCODONE-AC1 EAC1 PO; +Humalog SQ; +LISINOPRIL2.5 MG PO; +POTASSIUM CHLO20 ME4 PO; +SERTRALINE HYD100 MG PO
[2021-10-27 16:34] LABS: BASO % 0.5 % (0.0-1.0); EOS # 0.1 10*3/uL (0.0-0.4); EOS % 1.3 % (1.0-4.0); HEMATOCRIT 37.6 % (37.0-47.0); LYMPH # 0.7 10*3/uL (1.3-4.4); LYMPH % 10.9 % (27.0-41.0); MEAN CELL VOLUME 87.2 fl (81.0-99.0); MEAN CORPUSCULAR HGB 27.8 pg (27.0-31.0); MEAN CORPUSCULAR HGB CONC 31.9 g/dl (33.0-37.0); MEAN PLATELET VOLUME 11.2 fl (9.6-12.3); MONO # 0.5 10*3/uL (0.1-1.0); MONO % 8.4 % (3.0-9.0); NEUT # 4.8 10*3/uL (2.3-7.9); NEUT % 78.6 % (47.0-73.0); PLATELET COUNT AUTOMATED 184 10*3/uL (130-400); RED BLOOD COUNT 4.31 10*6/uL (4.10-5.10); RED CELL DISTRI WIDTH 14.3 % (0-14.5); WHITE BLOOD COUNT 6.1 10*3/uL (4.8-10.8)
[2021-10-27 16:46] LABS: BUN 17 mg/dl (7-24); CHLORIDE 107 mmol/L (98-107); CREATININE 1.04 mg/dL (0.55-1.02); POTASSIUM 4.7 mmol/L (3.5-5.1); SODIUM 139 mmol/L (136-145)
[2021-10-27 16:54] LABS: ACT PARTIAL THROMBO TIME 46.1 SECONDS (20.0-32.1)
[2021-10-27 16:56] LABS: INTERNATIONAL NORM RATIO 5.1 (2.0-3.5)
== END 2021-10-27 18:10 | disposition home or self-care (01) ==
LOC: ED 15:32
PROVIDERS: Emergency Medicine
DX: S80.02XA Contusion of left knee, initial encounter (principal); I25.10 Atherosclerotic heart disease of native coronary artery without angina pectoris; I25.2 Old myocardial infarction; E78.5 Hyperlipidemia, unspecified; E66.01 Morbid (severe) obesity due to excess calories; E03.9 Hypothyroidism, unspecified; I12.9 Hypertensive chronic kidney disease with stage 1 through stage 4 chronic kidney disease, or unspecified chronic kidney disease; E11.22 Type 2 diabetes mellitus with diabetic chronic kidney disease; N18.9 Chronic kidney disease, unspecified; Z88.8 Allergy status to other drugs, medicaments and biological substances; Z79.899 Other long term (current) drug therapy; Z90.49 Acquired absence of other specified parts of digestive tract; Z98.890 Other specified postprocedural states; W18.39XA Other fall on same level, initial encounter; Y93.89 Activity, other specified; Y92.89 Other specified places as the place of occurrence of the external cause; Y99.8 Other external cause status

== ENCOUNTER → 2021-10-29 | Outpatient (CLI) | payer OTHER, MEDICAID ==
[2021-10-29 13:39] LABS: INTERNATIONAL NORM RATIO 3.6 (2.0-3.5)
== END | disposition home or self-care (01) ==
LOC: LAB 12:45
PROVIDERS: Hospitalist; ATTEND Student in an Organized Health Care Education/Training Program
DX: Z79.01 Long term (current) use of anticoagulants (principal)

== ENCOUNTER → 2021-10-30 | Outpatient (CLI) | payer OTHER, MEDICAID | END | disposition home or self-care (01) | LOC: RESCLI 15:15 | PROVIDERS: ATTEND Internal Medicine Nephrology | DX: S81.802A Unspecified open wound, left lower leg, initial encounter (principal); R79.1 Abnormal coagulation profile; X58.XXXA Exposure to other specified factors, initial encounter; Y93.89 Activity, other specified; Y92.89 Other specified places as the place of occurrence of the external cause; Y99.8 Other external cause status ==

== ENCOUNTER → 2021-10-31 | Outpatient (CLI) | payer OTHER, MEDICAID ==
[2021-10-31 11:33] LABS: INTERNATIONAL NORM RATIO 1.6 (2.0-3.5)
== END | disposition home or self-care (01) ==
LOC: LAB 10:48
PROVIDERS: Hospitalist; ATTEND Internal Medicine
DX: R79.1 Abnormal coagulation profile (principal)

== ENCOUNTER → 2021-11-04 | Outpatient (CLI) | payer OTHER, MEDICAID ==
[2021-11-04 08:59] LABS: BASO % 0.5 % (0.0-1.0); EOS # 0.1 10*3/uL (0.0-0.4); EOS % 1.6 % (1.0-4.0); HEMATOCRIT 42.1 % (37.0-47.0); LYMPH # 1.3 10*3/uL (1.3-4.4); LYMPH % 17.1 % (27.0-41.0); MEAN CELL VOLUME 90.3 fl (81.0-99.0); MEAN CORPUSCULAR HGB 28.5 pg (27.0-31.0); MEAN CORPUSCULAR HGB CONC 31.6 g/dl (33.0-37.0); MEAN PLATELET VOLUME 11.7 fl (9.6-12.3); MONO # 0.7 10*3/uL (0.1-1.0); MONO % 9.1 % (3.0-9.0); NEUT # 5.2 10*3/uL (2.3-7.9); NEUT % 71.4 % (47.0-73.0); PLATELET COUNT AUTOMATED 253 10*3/uL (130-400); RED BLOOD COUNT 4.66 10*6/uL (4.10-5.10); RED CELL DISTRI WIDTH 14.6 % (0-14.5); WHITE BLOOD COUNT 7.3 10*3/uL (4.8-10.8)
[2021-11-04 09:06] LABS: INTERNATIONAL NORM RATIO 1.1 (2.0-3.5)
[2021-11-04 09:28] LABS: BILIRUBIN Negative (Negative); BLOOD Negative (Negative); CLARITY Turbid (Clear); COLOR Dark Yellow (Yellow); GLUCOSE Negative (Negative); KETONE Trace (Negative); LEUKO ESTERASE 1+ (Negative); NITRITE Negative (Negative); SPECIFIC GRAVITY >= 1.030 (1.001-1.030)
[2021-11-04 09:39] LABS: BUN 22 mg/dl (7-24); CHLORIDE 105 mmol/L (98-107); POTASSIUM 4.5 mmol/L (3.5-5.1); SODIUM 139 mmol/L (136-145); URIC ACID 4.7 mg/dL (2.6-6.0)
[2021-11-04 10:10] LABS: VITAMIN D, 25-HYDROXY 26.8 ng/mL (30-100)
[2021-11-04 11:21] LABS: BACTERIA 2+; EPITHELIAL CELLS TNTC; WBC 16-20 wbc/hpf (0-5)
== END | disposition home or self-care (01) ==
LOC: LAB 08:16
PROVIDERS: Hospitalist; ATTEND Internal Medicine Nephrology
DX: I82.91 Chronic embolism and thrombosis of unspecified vein (principal); I48.0 Paroxysmal atrial fibrillation; Z79.899 Other long term (current) drug therapy; Z94.0 Kidney transplant status; E55.9 Vitamin D deficiency, unspecified

== ENCOUNTER → 2021-11-08 | Outpatient (CLI) | payer OTHER, MEDICAID ==
[2021-11-08 12:18] LABS: INTERNATIONAL NORM RATIO 1.2 (2.0-3.5)
== END | disposition home or self-care (01) ==
LOC: LAB 11:22
PROVIDERS: Hospitalist; ATTEND Internal Medicine
DX: Z79.01 Long term (current) use of anticoagulants (principal)

== ENCOUNTER → 2021-11-12 | Outpatient (CLI) | payer OTHER, MEDICAID ==
[2021-11-12 12:33] LABS: INTERNATIONAL NORM RATIO 2.1 (2.0-3.5)
== END | disposition home or self-care (01) ==
LOC: LAB 11:46
PROVIDERS: Hospitalist; ATTEND Emergency Medicine
DX: Z79.01 Long term (current) use of anticoagulants (principal)

== ENCOUNTER → 2021-11-15 | Outpatient (CLI) | payer OTHER, MEDICAID ==
[2021-11-15 12:17] LABS: INTERNATIONAL NORM RATIO 2.9 (2.0-3.5)
== END | disposition home or self-care (01) ==
LOC: LAB 11:50
PROVIDERS: Hospitalist; ATTEND Internal Medicine
DX: Z79.01 Long term (current) use of anticoagulants (principal)

== ENCOUNTER → 2021-11-18 | Outpatient (CLI) | payer OTHER, MEDICAID ==
[2021-11-18 15:19] LABS: INTERNATIONAL NORM RATIO 3.9 (2.0-3.5)
== END | disposition home or self-care (01) ==
LOC: LAB 14:39
PROVIDERS: ATTEND Internal Medicine Nephrology
DX: I82.532 Chronic embolism and thrombosis of left popliteal vein (principal)

== ENCOUNTER → 2021-11-20 | Outpatient (CLI) | payer OTHER, MEDICAID | END | disposition home or self-care (01) | LOC: RESCLI 01:17 | PROVIDERS: ATTEND Internal Medicine Nephrology | DX: I10 Essential (primary) hypertension (principal); I25.10 Atherosclerotic heart disease of native coronary artery without angina pectoris; E11.9 Type 2 diabetes mellitus without complications; E03.9 Hypothyroidism, unspecified; F32.89 Other specified depressive episodes; I48.0 Paroxysmal atrial fibrillation; E78.5 Hyperlipidemia, unspecified; Z79.899 Other long term (current) drug therapy; K59.00 Constipation, unspecified; Z79.01 Long term (current) use of anticoagulants; Z79.82 Long term (current) use of aspirin; Z90.49 Acquired absence of other specified parts of digestive tract; Z98.890 Other specified postprocedural states; Z88.8 Allergy status to other drugs, medicaments and biological substances ==

== ENCOUNTER → 2021-11-21 | Outpatient (CLI) | payer OTHER, MEDICAID ==
[2021-11-21 12:11] LABS: INTERNATIONAL NORM RATIO 1.9 (2.0-3.5)
== END | disposition home or self-care (01) ==
LOC: LAB 11:42
PROVIDERS: Hospitalist; ATTEND Internal Medicine
DX: Z79.01 Long term (current) use of anticoagulants (principal)

== ENCOUNTER → 2021-11-26 | Outpatient (CLI) | payer OTHER, MEDICAID ==
[2021-11-26 12:17] LABS: INTERNATIONAL NORM RATIO 1.7 (2.0-3.5)
== END | disposition home or self-care (01) ==
LOC: LAB 11:47
PROVIDERS: Hospitalist; ATTEND Emergency Medicine
DX: Z79.01 Long term (current) use of anticoagulants (principal)

== ENCOUNTER → 2021-12-03 | Outpatient (CLI) | payer OTHER, MEDICAID ==
[2021-12-03 11:47] LABS: INTERNATIONAL NORM RATIO 2.7 (2.0-3.5)
== END | disposition home or self-care (01) ==
LOC: LAB 11:19
PROVIDERS: Hospitalist; ATTEND Internal Medicine
DX: Z79.01 Long term (current) use of anticoagulants (principal)

== ENCOUNTER → 2021-12-10 | Outpatient (CLI) | payer OTHER, MEDICAID ==
[2021-12-10 11:55] LABS: INTERNATIONAL NORM RATIO 2.7 (2.0-3.5)
== END | disposition home or self-care (01) ==
LOC: LAB 11:24
PROVIDERS: ATTEND Hospitalist
DX: Z79.01 Long term (current) use of anticoagulants (principal)

== ENCOUNTER → 2021-12-18 | Outpatient (CLI) | payer OTHER, MEDICAID ==
[2021-12-18 16:58] LABS: INTERNATIONAL NORM RATIO 3.1 (2.0-3.5)
== END | disposition home or self-care (01) ==
LOC: RESCLI 00:22
PROVIDERS: Hospitalist; ATTEND Internal Medicine Nephrology
DX: Z79.01 Long term (current) use of anticoagulants (principal); E11.9 Type 2 diabetes mellitus without complications; I25.10 Atherosclerotic heart disease of native coronary artery without angina pectoris; I11.0 Hypertensive heart disease with heart failure; I48.0 Paroxysmal atrial fibrillation; I50.32 Chronic diastolic (congestive) heart failure; Z94.0 Kidney transplant status; E78.5 Hyperlipidemia, unspecified; F32.89 Other specified depressive episodes; K59.00 Constipation, unspecified; Z79.899 Other long term (current) drug therapy; Z79.82 Long term (current) use of aspirin; Z88.8 Allergy status to other drugs, medicaments and biological substances

== ENCOUNTER → 2021-12-23 | Outpatient (CLI) | payer OTHER, MEDICAID ==
[2021-12-23 11:46] LABS: INTERNATIONAL NORM RATIO 1.8 (2.0-3.5)
== END | disposition home or self-care (01) ==
LOC: LAB 11:19
PROVIDERS: Hospitalist; ATTEND Internal Medicine Nephrology
DX: Z79.01 Long term (current) use of anticoagulants (principal)

== ENCOUNTER → 2021-12-26 | Outpatient (CLI) | payer OTHER, MEDICAID ==
[2021-12-26 12:52] LABS: INTERNATIONAL NORM RATIO 2.5 (2.0-3.5)
== END | disposition home or self-care (01) ==
LOC: LAB 11:54
PROVIDERS: ATTEND Hospitalist
DX: Z79.01 Long term (current) use of anticoagulants (principal)

== ENCOUNTER → 2022-01-13 | Outpatient (CLI) | payer OTHER, MEDICAID | END | disposition home or self-care (01) | LOC: CARD 02:02 | PROVIDERS: ATTEND Internal Medicine Cardiovascular Disease | DX: R94.31 Abnormal electrocardiogram [ECG] [EKG] (principal) ==

== ENCOUNTER → 2022-01-31 | Outpatient (CLI) | payer OTHER, MEDICAID ==
[2022-01-31 12:06] LABS: BASO % 0.4 % (0.0-1.0); EOS # 0.1 10*3/uL (0.0-0.4); EOS % 1.5 % (1.0-4.0); HEMATOCRIT 43.3 % (37.0-47.0); LYMPH # 0.9 10*3/uL (1.3-4.4); LYMPH % 12.7 % (27.0-41.0); MEAN CELL VOLUME 84.4 fl (81.0-99.0); MEAN CORPUSCULAR HGB 25.7 pg (27.0-31.0); MEAN CORPUSCULAR HGB CONC 30.5 g/dl (33.0-37.0); MEAN PLATELET VOLUME 12.3 fl (9.6-12.3); MONO # 0.6 10*3/uL (0.1-1.0); MONO % 8.3 % (3.0-9.0); NEUT # 5.6 10*3/uL (2.3-7.9); NEUT % 76.7 % (47.0-73.0); PLATELET COUNT AUTOMATED 202 10*3/uL (130-400); RED BLOOD COUNT 5.13 10*6/uL (4.10-5.10); RED CELL DISTRI WIDTH 13.5 % (0-14.5); WHITE BLOOD COUNT 7.3 10*3/uL (4.8-10.8)
[2022-01-31 12:25] LABS: CREATININE 1.29 mg/dL (0.55-1.02); POTASSIUM 4.8 mmol/L (3.5-5.1); TOTAL PROTEIN 6.5 gm/dL (6.4-8.2)
== END | disposition home or self-care (01) ==
LOC: LAB 11:38
PROVIDERS: ATTEND Hospitalist
DX: E11.69 Type 2 diabetes mellitus with other specified complication (principal); R94.39 Abnormal result of other cardiovascular function study; I48.91 Unspecified atrial fibrillation

== ENCOUNTER → 2022-02-05 | Outpatient (CLI) | payer OTHER, MEDICAID | END | disposition home or self-care (01) | LOC: CARD 01:16 | PROVIDERS: ATTEND Internal Medicine Cardiovascular Disease | DX: I08.0 Rheumatic disorders of both mitral and aortic valves (principal) ==

== ENCOUNTER → 2022-02-12 | Outpatient (CLI) | payer OTHER, MEDICAID | END | disposition home or self-care (01) | LOC: RESCLI 00:52 | PROVIDERS: Hospitalist; ATTEND Internal Medicine Nephrology | DX: Z79.01 Long term (current) use of anticoagulants (principal); E11.9 Type 2 diabetes mellitus without complications; I25.10 Atherosclerotic heart disease of native coronary artery without angina pectoris; I11.0 Hypertensive heart disease with heart failure; I48.0 Paroxysmal atrial fibrillation; E03.9 Hypothyroidism, unspecified; I50.32 Chronic diastolic (congestive) heart failure; Z94.0 Kidney transplant status; E78.5 Hyperlipidemia, unspecified; F32.89 Other specified depressive episodes; K59.00 Constipation, unspecified; Z95.5 Presence of coronary angioplasty implant and graft; Z79.899 Other long term (current) drug therapy; Z79.82 Long term (current) use of aspirin; Z88.8 Allergy status to other drugs, medicaments and biological substances ==

== ENCOUNTER → 2022-02-17 | Outpatient (CLI) | payer OTHER, MEDICAID ==
[2022-02-17 15:11] LABS: INTERNATIONAL NORM RATIO 2.7 (2.0-3.5)
== END | disposition home or self-care (01) ==
LOC: LAB 14:23
PROVIDERS: Hospitalist; ATTEND Internal Medicine Nephrology
DX: Z79.01 Long term (current) use of anticoagulants (principal)

== ENCOUNTER → 2022-03-04 | Outpatient (CLI) | payer OTHER, MEDICAID ==
[2022-03-04 08:52] LABS: BASO % 0.7 % (0.0-1.0); EOS # 0.1 10*3/uL (0.0-0.4); EOS % 2.1 % (1.0-4.0); HEMATOCRIT 43.4 % (37.0-47.0); LYMPH # 1.1 10*3/uL (1.3-4.4); LYMPH % 19.2 % (27.0-41.0); MEAN CELL VOLUME 85.8 fl (81.0-99.0); MEAN CORPUSCULAR HGB 26.3 pg (27.0-31.0); MEAN CORPUSCULAR HGB CONC 30.6 g/dl (33.0-37.0); MEAN PLATELET VOLUME 12.3 fl (9.6-12.3); MONO # 0.5 10*3/uL (0.1-1.0); MONO % 9.4 % (3.0-9.0); NEUT # 3.9 10*3/uL (2.3-7.9); NEUT % 68.4 % (47.0-73.0); PLATELET COUNT AUTOMATED 206 10*3/uL (130-400); RED BLOOD COUNT 5.06 10*6/uL (4.10-5.10); RED CELL DISTRI WIDTH 15.2 % (0-14.5); WHITE BLOOD COUNT 5.7 10*3/uL (4.8-10.8)
[2022-03-04 09:03] LABS: CREATININE 1.11 mg/dL (0.55-1.02); POTASSIUM 4.1 mmol/L (3.5-5.1); URIC ACID 4.5 mg/dL (2.6-6.0)
[2022-03-04 10:14] LABS: BILIRUBIN Negative (Negative); BLOOD Negative (Negative); CLARITY Cloudy (Clear); COLOR Yellow (Yellow); GLUCOSE Negative (Negative); KETONE Trace (Negative); LEUKO ESTERASE Trace (Negative); NITRITE Negative (Negative); PH 5.5 (4.5-8.0); SPECIFIC GRAVITY 1.025 (1.001-1.030)
[2022-03-04 10:34] LABS: VITAMIN D, 25-HYDROXY 24.1 ng/mL (30-100)
[2022-03-04 11:27] LABS: BACTERIA 2+; EPITHELIAL CELLS 21-30
== END | disposition home or self-care (01) ==
LOC: LAB 08:17
PROVIDERS: ATTEND Internal Medicine Nephrology
DX: E55.9 Vitamin D deficiency, unspecified (principal); Z94.0 Kidney transplant status

== ENCOUNTER → 2022-03-13 | Outpatient (CLI) | payer OTHER, MEDICAID | END | disposition home or self-care (01) | LOC: RESCLI 01:08 | PROVIDERS: ATTEND Internal Medicine | DX: I11.0 Hypertensive heart disease with heart failure (principal); I25.10 Atherosclerotic heart disease of native coronary artery without angina pectoris; E11.9 Type 2 diabetes mellitus without complications; I50.32 Chronic diastolic (congestive) heart failure; R26.2 Difficulty in walking, not elsewhere classified; I48.0 Paroxysmal atrial fibrillation; Z94.0 Kidney transplant status; E78.5 Hyperlipidemia, unspecified; F32.89 Other specified depressive episodes; K59.00 Constipation, unspecified; E03.9 Hypothyroidism, unspecified; Z79.01 Long term (current) use of anticoagulants; M85.80 Other specified disorders of bone density and structure, unspecified site; Z12.31 Encounter for screening mammogram for malignant neoplasm of breast; Z79.899 Other long term (current) drug therapy; Z79.82 Long term (current) use of aspirin; Z88.8 Allergy status to other drugs, medicaments and biological substances ==

== ENCOUNTER → 2022-03-14 | Outpatient (CLI) | payer OTHER, MEDICAID ==
[2022-03-14 10:19] LABS: INTERNATIONAL NORM RATIO 3.3 (2.0-3.5)
== END | disposition home or self-care (01) ==
LOC: LAB 09:40
PROVIDERS: Student in an Organized Health Care Education/Training Program; ATTEND Internal Medicine
DX: E11.9 Type 2 diabetes mellitus without complications (principal); Z79.01 Long term (current) use of anticoagulants

== ENCOUNTER → 2022-04-24 | Outpatient (CLI) | payer OTHER, MEDICAID ==
[2022-04-24 12:11] LABS: INTERNATIONAL NORM RATIO 1.4 (2.0-3.5)
[2022-04-24 12:26] LABS: TOTAL PROTEIN 6.8 gm/dL (6.4-8.2)
== END | disposition home or self-care (01) ==
LOC: LAB 11:24
PROVIDERS: Student in an Organized Health Care Education/Training Program; ATTEND Clinical Nurse Specialist Adult Health
DX: Z79.01 Long term (current) use of anticoagulants (principal)

== ENCOUNTER → 2022-06-16 | Outpatient (CLI) | payer OTHER, MEDICAID ==
[2022-06-16 12:30] LABS: INTERNATIONAL NORM RATIO 1.6 (2.0-3.5)
== END | disposition home or self-care (01) ==
LOC: RESCLI 01:56
PROVIDERS: Student in an Organized Health Care Education/Training Program; ATTEND Internal Medicine
DX: Z23 Encounter for immunization (principal); E11.9 Type 2 diabetes mellitus without complications; I48.0 Paroxysmal atrial fibrillation; I25.10 Atherosclerotic heart disease of native coronary artery without angina pectoris; F32.9 Major depressive disorder, single episode, unspecified; G43.909 Migraine, unspecified, not intractable, without status migrainosus; E03.9 Hypothyroidism, unspecified; H81.10 Benign paroxysmal vertigo, unspecified ear; I11.0 Hypertensive heart disease with heart failure; I50.32 Chronic diastolic (congestive) heart failure; E78.5 Hyperlipidemia, unspecified; F32.89 Other specified depressive episodes; Z79.899 Other long term (current) drug therapy; Z90.49 Acquired absence of other specified parts of digestive tract; Z79.01 Long term (current) use of anticoagulants; Z94.0 Kidney transplant status

== ENCOUNTER → 2022-07-02 | Outpatient (CLI) | payer OTHER, MEDICAID ==
[2022-07-02 09:26] LABS: BASO % 0.5 % (0.0-1.0); EOS # 0.1 10*3/uL (0.0-0.4); EOS % 1.5 % (1.0-4.0); HEMATOCRIT 42.6 % (37.0-47.0); LYMPH % 16.2 % (27.0-41.0); MEAN CELL VOLUME 85.2 fl (81.0-99.0); MEAN CORPUSCULAR HGB 26.4 pg (27.0-31.0); MEAN PLATELET VOLUME 12.9 fl (9.6-12.3); MONO # 0.6 10*3/uL (0.1-1.0); NEUT # 4.4 10*3/uL (2.3-7.9); NEUT % 71.3 % (47.0-73.0); PLATELET COUNT AUTOMATED 171 10*3/uL (130-400); RED CELL DISTRI WIDTH 14.2 % (0-14.5); WHITE BLOOD COUNT 6.1 10*3/uL (4.8-10.8)
[2022-07-02 09:29] LABS: BILIRUBIN Negative (Negative); BLOOD Negative (Negative); CLARITY Cloudy (Clear); COLOR Dark Yellow (Yellow); GLUCOSE Negative (Negative); KETONE Trace (Negative); LEUKO ESTERASE Negative (Negative); NITRITE Negative (Negative); PH 5.5 (4.5-8.0); SPECIFIC GRAVITY >= 1.030 (1.001-1.030)
[2022-07-02 09:44] LABS: CREATININE 1.15 mg/dL (0.55-1.02); POTASSIUM 4.3 mmol/L (3.5-5.1); URIC ACID 4.3 mg/dL (2.6-6.0)
[2022-07-02 09:54] LABS: INTERNATIONAL NORM RATIO 2.6 (2.0-3.5)
[2022-07-02 10:04] LABS: EPITHELIAL CELLS 51-100; RBC 0-2 rbc/hpf (0-2); WBC 0-2 wbc/hpf (0-5)
[2022-07-02 10:08] LABS: VITAMIN D, 25-HYDROXY 27.5 ng/mL (30-100)
== END ==
LOC: LAB 08:41
PROVIDERS: Student in an Organized Health Care Education/Training Program; ATTEND Internal Medicine Nephrology
DX: I48.0 Paroxysmal atrial fibrillation (principal); E55.9 Vitamin D deficiency, unspecified; Z94.0 Kidney transplant status

== ENCOUNTER → 2022-10-10 | Outpatient (CLI) | payer OTHER, MEDICAID ==
[2022-10-10 10:27] LABS: BASO % 0.3 % (0.0-1.0); EOS # 0.1 10*3/uL (0.0-0.4); EOS % 1.3 % (1.0-4.0); HEMATOCRIT 44.2 % (37.0-47.0); LYMPH # 1.3 10*3/uL (1.3-4.4); LYMPH % 18.7 % (27.0-41.0); MEAN CELL VOLUME 84.8 fl (81.0-99.0); MEAN CORPUSCULAR HGB 26.7 pg (27.0-31.0); MEAN CORPUSCULAR HGB CONC 31.4 g/dl (33.0-37.0); MEAN PLATELET VOLUME 13.3 fl (9.6-12.3); MONO # 0.7 10*3/uL (0.1-1.0); MONO % 10.3 % (3.0-9.0); NEUT # 4.6 10*3/uL (2.3-7.9); NEUT % 68.5 % (47.0-73.0); PLATELET COUNT AUTOMATED 160 10*3/uL (130-400); RED BLOOD COUNT 5.21 10*6/uL (4.10-5.10); RED CELL DISTRI WIDTH 14.2 % (0-14.5); WHITE BLOOD COUNT 6.7 10*3/uL (4.8-10.8)
[2022-10-10 10:28] LABS: BILIRUBIN Negative (Negative); BLOOD Negative (Negative); CLARITY Turbid (Clear); COLOR Yellow (Yellow); GLUCOSE Negative (Negative); KETONE Trace (Negative); LEUKO ESTERASE Trace (Negative); NITRITE Negative (Negative); PH 7.5 (4.5-8.0); SPECIFIC GRAVITY 1.025 (1.001-1.030)
[2022-10-10 10:41] LABS: POTASSIUM 4.1 mmol/L (3.4-5.1); URIC ACID 4.8 mg/dL (3.1-7.8)
[2022-10-10 10:45] LABS: BACTERIA 1+; EPITHELIAL CELLS TNTC; RBC 0-2 rbc/hpf (0-2); WBC 0-2 wbc/hpf (0-5)
[2022-10-10 11:03] LABS: VITAMIN D, 25-HYDROXY 31.2 ng/mL (30-100)
== END | disposition home or self-care (01) ==
LOC: LAB 09:08
PROVIDERS: ATTEND Internal Medicine Nephrology
DX: E55.9 Vitamin D deficiency, unspecified (principal); Z94.0 Kidney transplant status

== ENCOUNTER → 2022-12-29 | Outpatient (CLI) | payer OTHER, MEDICAID ==
[2022-12-29 11:14] LABS: INTERNATIONAL NORM RATIO 2.4 (2.0-3.5)
== END | disposition home or self-care (01) ==
LOC: RESCLI 00:17
PROVIDERS: Student in an Organized Health Care Education/Training Program; ATTEND Internal Medicine
DX: I95.1 Orthostatic hypotension (principal); E55.9 Vitamin D deficiency, unspecified; E11.9 Type 2 diabetes mellitus without complications; K59.00 Constipation, unspecified; E78.5 Hyperlipidemia, unspecified; I48.0 Paroxysmal atrial fibrillation; I11.0 Hypertensive heart disease with heart failure; I50.22 Chronic systolic (congestive) heart failure; I25.10 Atherosclerotic heart disease of native coronary artery without angina pectoris; Z94.0 Kidney transplant status; E03.9 Hypothyroidism, unspecified; R26.2 Difficulty in walking, not elsewhere classified; Z98.890 Other specified postprocedural states; Z88.8 Allergy status to other drugs, medicaments and biological substances; Z90.49 Acquired absence of other specified parts of digestive tract; Z79.02 Long term (current) use of antithrombotics/antiplatelets; Z79.899 Other long term (current) drug therapy

== ENCOUNTER → 2023-01-08 | Outpatient (CLI) | payer OTHER, MEDICAID ==
[2023-01-08 09:34] LABS: BASO % 0.4 % (0.0-1.0); EOS # 0.1 10*3/uL (0.0-0.4); EOS % 1.3 % (1.0-4.0); HEMATOCRIT 43.7 % (37.0-47.0); LYMPH % 11.4 % (27.0-41.0); MEAN CELL VOLUME 87.2 fl (81.0-99.0); MEAN CORPUSCULAR HGB 26.5 pg (27.0-31.0); MEAN CORPUSCULAR HGB CONC 30.4 g/dl (33.0-37.0); MONO # 0.7 10*3/uL (0.1-1.0); MONO % 7.7 % (3.0-9.0); NEUT # 7.1 10*3/uL (2.3-7.9); NEUT % 78.8 % (47.0-73.0); PLATELET COUNT AUTOMATED 178 10*3/uL (130-400); RED BLOOD COUNT 5.01 10*6/uL (4.10-5.10); RED CELL DISTRI WIDTH 14.3 % (0-14.5); WHITE BLOOD COUNT 9.1 10*3/uL (4.8-10.8)
[2023-01-08 09:41] LABS: BILIRUBIN Negative (Negative); BLOOD Negative (Negative); CLARITY Cloudy (Clear); COLOR Yellow (Yellow); GLUCOSE Negative (Negative); KETONE Negative (Negative); LEUKO ESTERASE Negative (Negative); NITRITE Negative (Negative); PH 7.5 (4.5-8.0)
[2023-01-08 09:59] LABS: BUN 12 mg/dl (9-23); CHLORIDE 102 mmol/L (98-107); POTASSIUM 4.6 mmol/L (3.4-5.1); URIC ACID 3.9 mg/dL (3.1-7.8)
[2023-01-08 10:12] LABS: BACTERIA 2+; MUCOUS TRACE; RBC 0-2 rbc/hpf (0-2); WBC 0-2 wbc/hpf (0-5)
[2023-01-08 10:30] LABS: VITAMIN D, 25-HYDROXY 41.3 ng/mL (30-100)
== END | disposition home or self-care (01) ==
LOC: LAB 08:46
PROVIDERS: ATTEND Internal Medicine Nephrology
DX: E55.9 Vitamin D deficiency, unspecified (principal); Z94.0 Kidney transplant status

== ENCOUNTER → 2023-01-12 | Outpatient (CLI) | payer OTHER, MEDICAID | END | disposition home or self-care (01) | LOC: RESCLI 01:12 | PROVIDERS: ATTEND Internal Medicine | DX: I48.0 Paroxysmal atrial fibrillation (principal); I25.10 Atherosclerotic heart disease of native coronary artery without angina pectoris; E11.9 Type 2 diabetes mellitus without complications; I10 Essential (primary) hypertension; Z86.16 Personal history of COVID-19; Z88.8 Allergy status to other drugs, medicaments and biological substances; Z98.890 Other specified postprocedural states; Z79.899 Other long term (current) drug therapy ==

== ENCOUNTER → 2023-02-05 | Outpatient (CLI) | payer OTHER, MEDICAID | END | disposition home or self-care (01) | LOC: CARD 00:07 | PROVIDERS: ATTEND Student in an Organized Health Care Education/Training Program | DX: I35.0 Nonrheumatic aortic (valve) stenosis (principal); I51.7 Cardiomegaly; R00.1 Bradycardia, unspecified ==

== ENCOUNTER → 2023-04-13 | Outpatient (CLI) | payer OTHER, MEDICAID ==
[2023-04-13 12:54] LABS: INTERNATIONAL NORM RATIO 2.3 (2.0-3.5)
== END | disposition home or self-care (01) ==
LOC: RESCLI 01:26
PROVIDERS: Student in an Organized Health Care Education/Training Program; ATTEND Internal Medicine
DX: I48.0 Paroxysmal atrial fibrillation (principal); E11.9 Type 2 diabetes mellitus without complications

== ENCOUNTER → 2023-04-22 | Outpatient (CLI) | payer OTHER, MEDICAID ==
[2023-04-22 09:05] LABS: BASO % 0.3 % (0.0-1.0); EOS # 0.1 10*3/uL (0.0-0.4); EOS % 1.5 % (1.0-4.0); HEMATOCRIT 42.9 % (37.0-47.0); LYMPH # 1.4 10*3/uL (1.3-4.4); LYMPH % 20.6 % (27.0-41.0); MEAN CELL VOLUME 86.8 fl (81.0-99.0); MEAN CORPUSCULAR HGB 27.1 pg (27.0-31.0); MEAN CORPUSCULAR HGB CONC 31.2 g/dl (33.0-37.0); MEAN PLATELET VOLUME 12.6 fl (9.6-12.3); MONO # 0.6 10*3/uL (0.1-1.0); MONO % 9.7 % (3.0-9.0); NEUT # 4.4 10*3/uL (2.3-7.9); NEUT % 67.3 % (47.0-73.0); PLATELET COUNT AUTOMATED 147 10*3/uL (130-400); RED BLOOD COUNT 4.94 10*6/uL (4.10-5.10); RED CELL DISTRI WIDTH 14.6 % (0-14.5); WHITE BLOOD COUNT 6.6 10*3/uL (4.8-10.8)
[2023-04-22 09:15] LABS: BILIRUBIN Negative (Negative); BLOOD Negative (Negative); CLARITY Clear (Clear); COLOR Yellow (Yellow); GLUCOSE Negative (Negative); KETONE Negative (Negative); LEUKO ESTERASE Trace (Negative); NITRITE Negative (Negative)
[2023-04-22 09:21] LABS: POTASSIUM 4.4 mmol/L (3.4-5.1); URIC ACID 3.8 mg/dL (3.1-7.8)
[2023-04-22 09:46] LABS: BACTERIA 1+; EPITHELIAL CELLS TNTC
[2023-04-22 10:04] LABS: VITAMIN D, 25-HYDROXY 40.7 ng/mL (30-100)
== END | disposition home or self-care (01) ==
LOC: LAB 08:33
PROVIDERS: ATTEND Internal Medicine Nephrology
DX: E55.9 Vitamin D deficiency, unspecified (principal); Z94.0 Kidney transplant status

== ENCOUNTER → 2023-05-06 | Outpatient (CLI) | payer OTHER, MEDICAID | END | disposition home or self-care (01) | LOC: MAMMO 00:40 | PROVIDERS: ATTEND Student in an Organized Health Care Education/Training Program | DX: Z12.31 Encounter for screening mammogram for malignant neoplasm of breast (principal) ==

== ENCOUNTER → 2023-07-13 | Outpatient (CLI) | payer OTHER, MEDICAID ==
[2023-07-13 09:49] LABS: BASO % 0.5 % (0.0-1.0); EOS # 0.1 10*3/uL (0.0-0.4); EOS % 1.1 % (1.0-4.0); LYMPH # 0.9 10*3/uL (1.3-4.4); LYMPH % 13.8 % (27.0-41.0); MEAN CELL VOLUME 86.9 fl (81.0-99.0); MEAN CORPUSCULAR HGB 26.6 pg (27.0-31.0); MEAN CORPUSCULAR HGB CONC 30.7 g/dl (33.0-37.0); MONO # 0.6 10*3/uL (0.1-1.0); MONO % 9.2 % (3.0-9.0); NEUT # 4.7 10*3/uL (2.3-7.9); NEUT % 75.1 % (47.0-73.0); PLATELET COUNT AUTOMATED 151 10*3/uL (130-400); RED BLOOD COUNT 5.18 10*6/uL (4.10-5.10); WHITE BLOOD COUNT 6.2 10*3/uL (4.8-10.8)
[2023-07-13 09:51] LABS: BILIRUBIN Negative (Negative); BLOOD Negative (Negative); CLARITY Clear (Clear); COLOR Yellow (Yellow); GLUCOSE Negative (Negative); KETONE Trace (Negative); LEUKO ESTERASE Trace (Negative); NITRITE Negative (Negative); SPECIFIC GRAVITY 1.025 (1.001-1.030)
[2023-07-13 10:05] LABS: BACTERIA 1+; EPITHELIAL CELLS TNTC; RBC 0-2 rbc/hpf (0-2)
[2023-07-13 10:14] LABS: BUN 13 mg/dl (9-23); CHLORIDE 104 mmol/L (98-107); POTASSIUM 4.7 mmol/L (3.4-5.1); URIC ACID 3.7 mg/dL (3.1-7.8)
[2023-07-13 10:35] LABS: VITAMIN D, 25-HYDROXY 38.9 ng/mL (30-100)
== END | disposition home or self-care (01) ==
LOC: RESCLI 01:15 → LAB 01:15 → RESCLI 06:36
PROVIDERS: Internal Medicine Nephrology; ATTEND Family Medicine
DX: Z23 Encounter for immunization (principal); I11.0 Hypertensive heart disease with heart failure; I50.32 Chronic diastolic (congestive) heart failure; E11.9 Type 2 diabetes mellitus without complications; I48.0 Paroxysmal atrial fibrillation; I25.10 Atherosclerotic heart disease of native coronary artery without angina pectoris; E78.5 Hyperlipidemia, unspecified; G43.909 Migraine, unspecified, not intractable, without status migrainosus; E03.9 Hypothyroidism, unspecified; H81.10 Benign paroxysmal vertigo, unspecified ear; K59.00 Constipation, unspecified; E55.9 Vitamin D deficiency, unspecified; R26.2 Difficulty in walking, not elsewhere classified; Z94.0 Kidney transplant status; Z79.899 Other long term (current) drug therapy

== ENCOUNTER → 2023-07-27 | Outpatient (CLI) | payer OTHER, MEDICAID | END | disposition home or self-care (01) | LOC: LAB 11:26 | PROVIDERS: ATTEND Student in an Organized Health Care Education/Training Program | DX: E11.9 Type 2 diabetes mellitus without complications (principal) ==

== ENCOUNTER 2023-09-10 06:33 | Emergency (ER) | payer OTHER, MEDICAID ==
[~2023-09-10] VITALS: Ht 165.1 cm; Wt 95.7 kg
[2023-09-10] MEDS ORDERED: VERAPAMIL HCL40 MG PO (06:46)
[2023-09-10] MEDS ORDERED: LANTUS SOL100 UNIT/1 SC (06:50)
[2023-09-10 07:56] LABS: BASO # 0.1 10*3/uL (0.0-0.1); BASO % 0.6 % (0.0-1.0); EOS # 0.1 10*3/uL (0.0-0.4); EOS % 1.2 % (1.0-4.0); HEMATOCRIT 45.3 % (37.0-47.0); LYMPH # 1.2 10*3/uL (1.3-4.4); MEAN CELL VOLUME 86.6 fl (81.0-99.0); MEAN CORPUSCULAR HGB 26.6 pg (27.0-31.0); MEAN CORPUSCULAR HGB CONC 30.7 g/dl (33.0-37.0); MONO # 0.7 10*3/uL (0.1-1.0); MONO % 7.9 % (3.0-9.0); NEUT # 6.5 10*3/uL (2.3-7.9); PLATELET COUNT AUTOMATED 164 10*3/uL (130-400); RED BLOOD COUNT 5.23 10*6/uL (4.10-5.10); RED CELL DISTRI WIDTH 14.2 % (0-14.5); WHITE BLOOD COUNT 8.6 10*3/uL (4.8-10.8)
[2023-09-10 08:02] LABS: ACT PARTIAL THROMBO TIME 39.4 SECONDS (20.0-32.1)
[2023-09-10 08:16] LABS: POTASSIUM 4.5 mmol/L (3.4-5.1); TOTAL PROTEIN 6.7 gm/dL (6.0-8.0)
[2023-09-10 09:27] LABS: BILIRUBIN Negative (Negative); BLOOD 3+ (Negative); CLARITY Clear (Clear); COLOR Yellow (Yellow); GLUCOSE Negative (Negative); KETONE Negative (Negative); LEUKO ESTERASE Negative (Negative); NITRITE Negative (Negative); PH 5.5 (4.5-8.0); UROBILINOGEN 0.2 E.U./dl (0.0-1.0)
[2023-09-10 09:41] LABS: BACTERIA 2+
[2023-09-10 09:42] LABS: HYALINE CAST 0-2; WBC 0-2 wbc/hpf (0-5)
== END 2023-09-10 10:45 | disposition home or self-care (01) ==
LOC: ED 06:33
PROVIDERS: Family Medicine
DX: N95.0 Postmenopausal bleeding (principal); D68.318 Other hemorrhagic disorder due to intrinsic circulating anticoagulants, antibodies, or inhibitors; E11.9 Type 2 diabetes mellitus without complications; I25.2 Old myocardial infarction; I25.10 Atherosclerotic heart disease of native coronary artery without angina pectoris; I10 Essential (primary) hypertension; M10.9 Gout, unspecified; Z86.718 Personal history of other venous thrombosis and embolism; Z88.6 Allergy status to analgesic agent; Z88.8 Allergy status to other drugs, medicaments and biological substances; Z95.5 Presence of coronary angioplasty implant and graft; Z90.49 Acquired absence of other specified parts of digestive tract; Z90.89 Acquired absence of other organs; Z98.890 Other specified postprocedural states; Z79.899 Other long term (current) drug therapy

== ENCOUNTER → 2023-09-16 | Outpatient (CLI) | payer OTHER, MEDICAID ==
[~2023-09-16] MED LIST changes: +LANTUS SOL100 UNIT/1 SC; +VERAPAMIL HCL40 MG PO
[2023-09-16 09:14] LABS: BASO % 0.4 % (0.0-1.0); EOS # 0.1 10*3/uL (0.0-0.4); HEMATOCRIT 41.5 % (37.0-47.0); LYMPH # 1.1 10*3/uL (1.3-4.4); LYMPH % 13.4 % (27.0-41.0); MEAN CELL VOLUME 87.2 fl (81.0-99.0); MEAN CORPUSCULAR HGB 26.5 pg (27.0-31.0); MEAN CORPUSCULAR HGB CONC 30.4 g/dl (33.0-37.0); MEAN PLATELET VOLUME 12.8 fl (9.6-12.3); MONO # 0.9 10*3/uL (0.1-1.0); MONO % 10.4 % (3.0-9.0); NEUT % 73.2 % (47.0-73.0); PLATELET COUNT AUTOMATED 150 10*3/uL (130-400); RED BLOOD COUNT 4.76 10*6/uL (4.10-5.10); RED CELL DISTRI WIDTH 13.9 % (0-14.5); WHITE BLOOD COUNT 8.2 10*3/uL (4.8-10.8)
[2023-09-16 09:48] LABS: ALKALINE PHOSPHATASE 91 U/L (46-116); BUN 16 mg/dl (9-23); CHLORIDE 107 mmol/L (98-107); POTASSIUM 4.2 mmol/L (3.4-5.1); SGPT/ALT 38 U/L (5-49); TOTAL PROTEIN 6.1 gm/dL (6.0-8.0); URIC ACID 3.7 mg/dL (3.1-7.8)
== END | disposition home or self-care (01) ==
LOC: LAB 08:34
PROVIDERS: ATTEND Internal Medicine Nephrology
DX: Z94.0 Kidney transplant status (principal)

== ENCOUNTER → 2023-10-12 | Outpatient (CLI) | payer OTHER, MEDICAID ==
[2023-10-12 13:31] LABS: POTASSIUM 4.1 mmol/L (3.4-5.1)
== END | disposition home or self-care (01) ==
LOC: RESCLI 01:16
PROVIDERS: Student in an Organized Health Care Education/Training Program; ATTEND Internal Medicine
DX: E11.9 Type 2 diabetes mellitus without complications (principal); I25.10 Atherosclerotic heart disease of native coronary artery without angina pectoris; K59.00 Constipation, unspecified; F32.89 Other specified depressive episodes; H81.10 Benign paroxysmal vertigo, unspecified ear; E55.9 Vitamin D deficiency, unspecified; I48.0 Paroxysmal atrial fibrillation; I11.0 Hypertensive heart disease with heart failure; I50.32 Chronic diastolic (congestive) heart failure; E78.5 Hyperlipidemia, unspecified; E03.9 Hypothyroidism, unspecified; R26.2 Difficulty in walking, not elsewhere classified; Z88.8 Allergy status to other drugs, medicaments and biological substances; Z94.0 Kidney transplant status; Z79.899 Other long term (current) drug therapy; Z98.890 Other specified postprocedural states

== ENCOUNTER → 2023-11-03 | Outpatient (CLI) | payer OTHER, MEDICAID ==
[2023-11-03 09:42] LABS: BASO % 0.5 % (0.0-1.0); EOS # 0.1 10*3/uL (0.0-0.4); EOS % 1.4 % (1.0-4.0); LYMPH # 1.5 10*3/uL (1.3-4.4); LYMPH % 22.7 % (27.0-41.0); MEAN CELL VOLUME 86.6 fl (81.0-99.0); MEAN CORPUSCULAR HGB 25.8 pg (27.0-31.0); MEAN CORPUSCULAR HGB CONC 29.8 g/dl (33.0-37.0); MEAN PLATELET VOLUME 12.5 fl (9.6-12.3); MONO # 0.7 10*3/uL (0.1-1.0); MONO % 10.3 % (3.0-9.0); NEUT # 4.2 10*3/uL (2.3-7.9); NEUT % 64.6 % (47.0-73.0); PLATELET COUNT AUTOMATED 159 10*3/uL (130-400); RED BLOOD COUNT 5.31 10*6/uL (4.10-5.10); RED CELL DISTRI WIDTH 14.2 % (0-14.5); WHITE BLOOD COUNT 6.5 10*3/uL (4.8-10.8)
[2023-11-03 10:03] LABS: POTASSIUM 4.5 mmol/L (3.4-5.1); TOTAL PROTEIN 6.5 gm/dL (6.0-8.0); URIC ACID 4.3 mg/dL (3.1-7.8)
== END | disposition home or self-care (01) ==
LOC: LAB 09:13
PROVIDERS: ATTEND Internal Medicine Nephrology
DX: I48.0 Paroxysmal atrial fibrillation (principal); R00.1 Bradycardia, unspecified; N18.6 End stage renal disease; Z94.0 Kidney transplant status

== ENCOUNTER → 2023-12-02 | Outpatient (CLI) | payer OTHER, MEDICAID ==
[2023-12-02 09:02] LABS: BASO % 0.6 % (0.0-1.0); EOS # 0.1 10*3/uL (0.0-0.4); EOS % 0.9 % (1.0-4.0); HEMATOCRIT 46.2 % (37.0-47.0); LYMPH % 15.5 % (27.0-41.0); MEAN CELL VOLUME 86.4 fl (81.0-99.0); MEAN CORPUSCULAR HGB 25.8 pg (27.0-31.0); MEAN CORPUSCULAR HGB CONC 29.9 g/dl (33.0-37.0); MEAN PLATELET VOLUME 12.9 fl (9.6-12.3); MONO # 0.6 10*3/uL (0.1-1.0); MONO % 9.5 % (3.0-9.0); NEUT # 4.7 10*3/uL (2.3-7.9); NEUT % 73.2 % (47.0-73.0); PLATELET COUNT AUTOMATED 168 10*3/uL (130-400); RED BLOOD COUNT 5.35 10*6/uL (4.10-5.10); RED CELL DISTRI WIDTH 14.4 % (0-14.5); WHITE BLOOD COUNT 6.4 10*3/uL (4.8-10.8)
[2023-12-02 09:29] LABS: POTASSIUM 4.8 mmol/L (3.4-5.1); TOTAL PROTEIN 6.6 gm/dL (6.0-8.0); URIC ACID 3.8 mg/dL (3.1-7.8)
== END | disposition home or self-care (01) ==
LOC: LAB 08:43
PROVIDERS: ATTEND Internal Medicine Nephrology
DX: Z94.0 Kidney transplant status (principal)

== ENCOUNTER → 2023-12-15 | Outpatient (CLI) | payer OTHER, MEDICAID | END | disposition home or self-care (01) | LOC: RESCLI 02:54 | PROVIDERS: ATTEND Family Medicine | DX: I11.0 Hypertensive heart disease with heart failure (principal); I50.32 Chronic diastolic (congestive) heart failure; E03.9 Hypothyroidism, unspecified; H81.10 Benign paroxysmal vertigo, unspecified ear; E55.9 Vitamin D deficiency, unspecified; E11.9 Type 2 diabetes mellitus without complications; Z94.0 Kidney transplant status; I48.0 Paroxysmal atrial fibrillation; E78.5 Hyperlipidemia, unspecified; R26.2 Difficulty in walking, not elsewhere classified; F32.89 Other specified depressive episodes; Z79.899 Other long term (current) drug therapy; Z88.8 Allergy status to other drugs, medicaments and biological substances; Z98.890 Other specified postprocedural states ==

== ENCOUNTER → 2024-01-07 | Outpatient (CLI) | payer OTHER, MEDICAID ==
[2024-01-07 10:11] LABS: FREE T4 0.78 ng/dl (0.89-1.76)
== END | disposition home or self-care (01) ==
LOC: LAB 09:09
PROVIDERS: Student in an Organized Health Care Education/Training Program; ATTEND Internal Medicine Nephrology
DX: E03.9 Hypothyroidism, unspecified (principal); N25.81 Secondary hyperparathyroidism of renal origin; N18.9 Chronic kidney disease, unspecified; D63.1 Anemia in chronic kidney disease

== ENCOUNTER → 2024-01-11 | Outpatient (CLI) | payer OTHER, MEDICAID ==
[2024-01-11 13:20] LABS: POTASSIUM 4.4 mmol/L (3.4-5.1)
== END | disposition home or self-care (01) ==
LOC: RESCLI 02:11
PROVIDERS: Student in an Organized Health Care Education/Training Program; ATTEND Student in an Organized Health Care Education/Training Program
DX: E11.9 Type 2 diabetes mellitus without complications (principal); E03.9 Hypothyroidism, unspecified; C54.1 Malignant neoplasm of endometrium; I25.10 Atherosclerotic heart disease of native coronary artery without angina pectoris; H81.10 Benign paroxysmal vertigo, unspecified ear; K59.00 Constipation, unspecified; E55.9 Vitamin D deficiency, unspecified; I48.0 Paroxysmal atrial fibrillation; I11.0 Hypertensive heart disease with heart failure; I50.32 Chronic diastolic (congestive) heart failure; E78.5 Hyperlipidemia, unspecified; F32.89 Other specified depressive episodes; R26.2 Difficulty in walking, not elsewhere classified; Z86.16 Personal history of COVID-19; Z98.890 Other specified postprocedural states; Z82.49 Family history of ischemic heart disease and other diseases of the circulatory system; Z79.899 Other long term (current) drug therapy; Z94.0 Kidney transplant status; Z88.8 Allergy status to other drugs, medicaments and biological substances

== ENCOUNTER → 2024-04-07 | Outpatient (CLI) | payer OTHER, MEDICAID ==
[2024-04-07 09:11] LABS: BASO # 0.1 10*3/uL (0.0-0.1); BASO % 0.7 % (0.0-1.0); EOS # 0.1 10*3/uL (0.0-0.4); EOS % 1.1 % (1.0-4.0); HEMATOCRIT 46.9 % (37.0-47.0); LYMPH # 1.2 10*3/uL (1.3-4.4); LYMPH % 16.3 % (27.0-41.0); MEAN CELL VOLUME 85.3 fl (81.0-99.0); MEAN CORPUSCULAR HGB 27.5 pg (27.0-31.0); MEAN CORPUSCULAR HGB CONC 32.2 g/dl (33.0-37.0); MEAN PLATELET VOLUME 12.4 fl (9.6-12.3); MONO # 0.6 10*3/uL (0.1-1.0); MONO % 8.6 % (3.0-9.0); NEUT # 5.4 10*3/uL (2.3-7.9); PLATELET COUNT AUTOMATED 155 10*3/uL (130-400); RED CELL DISTRI WIDTH 14.3 % (0-14.5); WHITE BLOOD COUNT 7.3 10*3/uL (4.8-10.8)
[2024-04-07 09:21] LABS: BILIRUBIN Negative (Negative); BLOOD Negative (Negative); CLARITY Cloudy (Clear); COLOR Yellow (Yellow); GLUCOSE 3+ (Negative); KETONE Trace (Negative); LEUKO ESTERASE Trace (Negative); NITRITE Negative (Negative); SPECIFIC GRAVITY >= 1.030 (1.001-1.030)
[2024-04-07 09:30] LABS: URINE CREATININE RANDOM 151.74 mg/dL
[2024-04-07 09:34] LABS: POTASSIUM 3.6 mmol/L (3.4-5.1); URIC ACID 4.8 mg/dL (3.1-7.8)
[2024-04-07 09:43] LABS: BACTERIA 1+; EPITHELIAL CELLS 21-30; RBC 0-2 rbc/hpf (0-2)
[2024-04-07 10:15] LABS: VITAMIN D, 25-HYDROXY 48.5 ng/mL (30-100)
== END | disposition home or self-care (01) ==
LOC: LAB 08:46
PROVIDERS: ATTEND Internal Medicine Nephrology
DX: E11.22 Type 2 diabetes mellitus with diabetic chronic kidney disease (principal); E11.21 Type 2 diabetes mellitus with diabetic nephropathy; N18.9 Chronic kidney disease, unspecified; E55.9 Vitamin D deficiency, unspecified; D63.1 Anemia in chronic kidney disease; Z94.0 Kidney transplant status

== ENCOUNTER → 2024-04-18 | Outpatient (CLI) | payer OTHER, MEDICAID ==
[2024-04-18 12:13] LABS: FREE T4 1.05 ng/dl (0.89-1.76)
== END | disposition home or self-care (01) ==
LOC: RESCLI 00:32
PROVIDERS: Student in an Organized Health Care Education/Training Program; ATTEND Family Medicine
DX: E11.9 Type 2 diabetes mellitus without complications (principal); I11.0 Hypertensive heart disease with heart failure; I50.32 Chronic diastolic (congestive) heart failure; I48.0 Paroxysmal atrial fibrillation; E03.9 Hypothyroidism, unspecified; K59.00 Constipation, unspecified; E55.9 Vitamin D deficiency, unspecified; Z94.0 Kidney transplant status; I25.10 Atherosclerotic heart disease of native coronary artery without angina pectoris; F32.89 Other specified depressive episodes; Z12.39 Encounter for other screening for malignant neoplasm of breast; C54.1 Malignant neoplasm of endometrium; M81.0 Age-related osteoporosis without current pathological fracture; H81.10 Benign paroxysmal vertigo, unspecified ear; Z86.16 Personal history of COVID-19; Z79.82 Long term (current) use of aspirin; Z79.01 Long term (current) use of anticoagulants; Z79.02 Long term (current) use of antithrombotics/antiplatelets; Z79.899 Other long term (current) drug therapy

== ENCOUNTER → 2024-05-31 | Outpatient (CLI) | payer OTHER, MEDICAID ==
[2024-05-31 10:01] LABS: HEMATOCRIT 51.9 % (37.0-47.0); MEAN CELL VOLUME 88.6 fl (81.0-99.0); MEAN CORPUSCULAR HGB 27.8 pg (27.0-31.0); MEAN CORPUSCULAR HGB CONC 31.4 g/dl (33.0-37.0); MEAN PLATELET VOLUME 13.3 fl (9.6-12.3); PLATELET COUNT AUTOMATED 177 10*3/uL (130-400); RED BLOOD COUNT 5.86 10*6/uL (4.10-5.10); RED CELL DISTRI WIDTH 13.8 % (0-14.5); WHITE BLOOD COUNT 10.3 10*3/uL (4.8-10.8)
[2024-05-31 10:18] LABS: POTASSIUM 3.4 mmol/L (3.4-5.1); URIC ACID 4.8 mg/dL (3.1-7.8)
[2024-05-31 10:23] LABS: MANUAL DIFF REFLEX YES
[2024-05-31 10:25] LABS: BASOPHILS 2 % (0-1); TOTAL CELLS COUNTED 100 #CELLS
[2024-05-31 10:26] LABS: PLATELET SUFFICIENCY NORMAL (NORMAL)
[2024-05-31 10:27] LABS: BURR CELLS FEW
[2024-05-31 10:44] LABS: VITAMIN D, 25-HYDROXY 49.1 ng/mL (30-100)
[2024-05-31 11:00] LABS: BILIRUBIN Negative (Negative); BLOOD Negative (Negative); CLARITY Cloudy (Clear); COLOR Yellow (Yellow); GLUCOSE 3+ (Negative); KETONE Trace (Negative); LEUKO ESTERASE 1+ (Negative); NITRITE Negative (Negative); SPECIFIC GRAVITY 1.025 (1.001-1.030)
[2024-05-31 11:08] LABS: URINE CREATININE RANDOM 128.42 mg/dL
[2024-05-31 11:11] LABS: BACTERIA 1+; EPITHELIAL CELLS 21-30
== END | disposition home or self-care (01) ==
LOC: LAB 09:22
PROVIDERS: ATTEND Internal Medicine Nephrology
DX: N25.81 Secondary hyperparathyroidism of renal origin (principal); N18.9 Chronic kidney disease, unspecified; D63.1 Anemia in chronic kidney disease; Z94.0 Kidney transplant status

== ENCOUNTER → 2024-08-09 | Outpatient (CLI) | payer OTHER, MEDICAID ==
[2024-08-09 09:33] LABS: BASO % 0.5 % (0.0-1.0); EOS # 0.1 10*3/uL (0.0-0.4); HEMATOCRIT 48.9 % (37.0-47.0); MEAN CELL VOLUME 88.9 fl (81.0-99.0); MEAN CORPUSCULAR HGB 28.4 pg (27.0-31.0); MEAN CORPUSCULAR HGB CONC 31.9 g/dl (33.0-37.0); MEAN PLATELET VOLUME 12.2 fl (9.6-12.3); MONO # 0.8 10*3/uL (0.1-1.0); MONO % 9.4 % (3.0-9.0); NEUT # 6.3 10*3/uL (2.3-7.9); NEUT % 75.7 % (47.0-73.0); PLATELET COUNT AUTOMATED 177 10*3/uL (130-400); RED CELL DISTRI WIDTH 13.2 % (0-14.5); WHITE BLOOD COUNT 8.3 10*3/uL (4.8-10.8)
[2024-08-09 09:42] LABS: BILIRUBIN Negative (Negative); BLOOD Negative (Negative); CLARITY Cloudy (Clear); COLOR Yellow (Yellow); GLUCOSE 3+ (Negative); KETONE Trace (Negative); LEUKO ESTERASE Negative (Negative); NITRITE Negative (Negative); SPECIFIC GRAVITY >= 1.030 (1.001-1.030)
[2024-08-09 09:58] LABS: POTASSIUM 4.1 mmol/L (3.4-5.1); URIC ACID 4.1 mg/dL (3.1-7.8)
[2024-08-09 10:11] LABS: EPITHELIAL CELLS 21-30; RBC 0-2 rbc/hpf (0-2)
[2024-08-09 10:17] LABS: VITAMIN D, 25-HYDROXY 42.5 ng/mL (30-100)
== END | disposition home or self-care (01) ==
LOC: LAB 08:48
PROVIDERS: ATTEND Internal Medicine Nephrology
DX: N25.81 Secondary hyperparathyroidism of renal origin (principal); D63.1 Anemia in chronic kidney disease; Z94.0 Kidney transplant status

== ENCOUNTER → 2024-10-11 | Outpatient (CLI) | payer OTHER, MEDICAID ==
[2024-10-11 09:18] LABS: BASO % 0.5 % (0.0-1.0); EOS # 0.1 10*3/uL (0.0-0.4); EOS % 1.2 % (1.0-4.0); HEMATOCRIT 51.4 % (37.0-47.0); MEAN CELL VOLUME 88.5 fl (81.0-99.0); MEAN CORPUSCULAR HGB 27.9 pg (27.0-31.0); MEAN CORPUSCULAR HGB CONC 31.5 g/dl (33.0-37.0); MEAN PLATELET VOLUME 12.4 fl (9.6-12.3); MONO # 0.8 10*3/uL (0.1-1.0); MONO % 9.6 % (3.0-9.0); NEUT # 5.5 10*3/uL (2.3-7.9); NEUT % 69.9 % (47.0-73.0); PLATELET COUNT AUTOMATED 186 10*3/uL (130-400); RED BLOOD COUNT 5.81 10*6/uL (4.10-5.10); RED CELL DISTRI WIDTH 13.6 % (0-14.5); WHITE BLOOD COUNT 7.8 10*3/uL (4.8-10.8)
[2024-10-11 09:19] LABS: BILIRUBIN Negative (Negative); BLOOD Negative (Negative); CLARITY Cloudy (Clear); COLOR Yellow (Yellow); GLUCOSE 3+ (Negative); KETONE Negative (Negative); LEUKO ESTERASE Negative (Negative); NITRITE Negative (Negative); SPECIFIC GRAVITY >= 1.030 (1.001-1.030)
[2024-10-11 09:31] LABS: BACTERIA TRACE; EPITHELIAL CELLS 41-50; RBC 0-2 rbc/hpf (0-2)
[2024-10-11 10:00] LABS: POTASSIUM 3.6 mmol/L (3.4-5.1); URIC ACID 4.3 mg/dL (3.1-7.8)
[2024-10-11 10:27] LABS: VITAMIN D, 25-HYDROXY 60.2 ng/mL (30-100)
== END | disposition home or self-care (01) ==
LOC: LAB 08:42
PROVIDERS: ATTEND Internal Medicine Nephrology
DX: N18.9 Chronic kidney disease, unspecified (principal); N25.81 Secondary hyperparathyroidism of renal origin; D63.1 Anemia in chronic kidney disease; Z94.0 Kidney transplant status

== ENCOUNTER → 2025-03-09 | Outpatient (CLI) | payer OTHER, MEDICAID | END | disposition home or self-care (01) | LOC: RESCLI 08:13 | PROVIDERS: ATTEND Internal Medicine | DX: E03.9 Hypothyroidism, unspecified (principal); E11.9 Type 2 diabetes mellitus without complications; I48.0 Paroxysmal atrial fibrillation; F32.89 Other specified depressive episodes; I25.10 Atherosclerotic heart disease of native coronary artery without angina pectoris; E78.2 Mixed hyperlipidemia; E55.9 Vitamin D deficiency, unspecified; H81.10 Benign paroxysmal vertigo, unspecified ear; I11.0 Hypertensive heart disease with heart failure; I50.32 Chronic diastolic (congestive) heart failure; Q87.81 Alport syndrome; Z79.01 Long term (current) use of anticoagulants; Z91.199 Patient's noncompliance with other medical treatment and regimen due to unspecified reason; Z85.42 Personal history of malignant neoplasm of other parts of uterus; Z94.0 Kidney transplant status; Z79.899 Other long term (current) drug therapy; Z98.890 Other specified postprocedural states; Z88.8 Allergy status to other drugs, medicaments and biological substances ==

== ENCOUNTER → 2025-03-10 | Outpatient (CLI) | payer OTHER, MEDICAID ==
[2025-03-10 09:17] LABS: MEAN CELL VOLUME 88.0 fl (81.0-99.0); MEAN CORPUSCULAR HGB 28.1 pg (27.0-31.0); MEAN PLATELET VOLUME 13.2 fl (9.6-12.3); NUCLEATED RED BLOOD CELL 0.0 % (0.0-0.0); NUCLEATED RED BLOOD CELL 0.0 10*3/uL (0.0-0.0); PLATELET COUNT AUTOMATED 167 10*3/uL (130-400); RED CELL DISTRI WIDTH 14.0 % (0-14.5)
[2025-03-10 09:20] LABS: BILIRUBIN Negative (Negative); BLOOD Negative (Negative); CLARITY Clear (Clear); COLOR Yellow (Yellow); KETONE Negative (Negative); LEUKO ESTERASE Negative (Negative); NITRITE Negative (Negative); PH 6.5 (4.5-8.0); SPECIFIC GRAVITY 1.025 (1.001-1.030); UROBILINOGEN 0.2 E.U./dl (0.0-1.0)
[2025-03-10 09:40] LABS: MANUAL DIFF REFLEX YES
[2025-03-10 09:44] LABS: PLATELET SUFFICIENCY NORMAL (NORMAL)
[2025-03-10 09:57] LABS: BUN 20.0 mg/dl (9-23)
[2025-03-10 10:01] LABS: BUN 19.0 mg/dl (9-23); FREE T4 1.15 ng/dl (0.89-1.76); LDL CHOLESTEROL 103.0 mg/dL (9-159); SGPT/ALT 47.0 U/L (5-49)
[2025-03-10 10:09] LABS: VITAMIN D, 25-HYDROXY 54.7 ng/mL (30-100)
[2025-03-10 10:09] LABS: BACTERIA 2+; RBC 0-2 rbc/hpf (0-2); WBC 0-2 wbc/hpf (0-5)
== END | disposition home or self-care (01) ==
LOC: LAB 08:22
PROVIDERS: Student in an Organized Health Care Education/Training Program; ATTEND Internal Medicine Nephrology
DX: E11.9 Type 2 diabetes mellitus without complications (principal); E78.2 Mixed hyperlipidemia; E03.9 Hypothyroidism, unspecified; I48.0 Paroxysmal atrial fibrillation

== ENCOUNTER → 2025-03-22 | Outpatient (CLI) | payer OTHER, MEDICAID ==
[~2025-03-22] MED LIST changes: +Regadenoson 0.4 MG/5 ML SYR IV ONE; +Technetium Tc 99M Tetrofosmi 0.23 MG KIT IJ SCH
== END | disposition home or self-care (01) ==
LOC: CARD 01:14
PROVIDERS: ATTEND Nuclear Medicine Nuclear Cardiology
DX: I08.0 Rheumatic disorders of both mitral and aortic valves (principal); R06.02 Shortness of breath; I25.10 Atherosclerotic heart disease of native coronary artery without angina pectoris

== ENCOUNTER → 2025-03-24 | Outpatient (CLI) | payer OTHER, MEDICAID ==
[~2025-03-24] MED LIST changes: -Regadenoson 0.4 MG/5 ML SYR IV ONE; -Technetium Tc 99M Tetrofosmi 0.23 MG KIT IJ SCH
== END ==
LOC: RAD 00:37
PROVIDERS: ATTEND Family Medicine
DX: M81.0 Age-related osteoporosis without current pathological fracture (principal); M85.89 Other specified disorders of bone density and structure, multiple sites; N95.9 Unspecified menopausal and perimenopausal disorder; Z13.820 Encounter for screening for osteoporosis

== ENCOUNTER → 2025-05-23 | Outpatient (CLI) | payer OTHER, MEDICAID ==
[2025-05-23 09:42] LABS: BASO # 0.1 10*3/uL (0.0-0.1); BASO % 0.8 % (0.0-1.0); EOS # 0.1 10*3/uL (0.0-0.4); EOS % 1.4 % (1.0-4.0); MEAN CELL VOLUME 91.1 fl (81.0-99.0); MEAN CORPUSCULAR HGB 28.8 pg (27.0-31.0); MEAN PLATELET VOLUME 11.8 fl (9.6-12.3); MONO # 0.7 10*3/uL (0.1-1.0); MONO % 10.0 % (3.0-9.0); NEUT # 4.7 10*3/uL (2.3-7.9); NEUT % 72.0 % (47.0-73.0); NUCLEATED RED BLOOD CELL 0.0 % (0.0-0.0); NUCLEATED RED BLOOD CELL 0.0 10*3/uL (0.0-0.0); PLATELET COUNT AUTOMATED 142 10*3/uL (130-400); RED CELL DISTRI WIDTH 13.4 % (0-14.5)
[2025-05-23 09:44] LABS: BILIRUBIN Negative (Negative); BLOOD Negative (Negative); CLARITY Clear (Clear); COLOR Yellow (Yellow); KETONE Negative (Negative); LEUKO ESTERASE Negative (Negative); NITRITE Negative (Negative); PH 6.0 (4.5-8.0); SPECIFIC GRAVITY 1.025 (1.001-1.030); UROBILINOGEN 1.0 E.U./dl (0.0-1.0)
[2025-05-23 10:12] LABS: BACTERIA 1+; EPITHELIAL CELLS 16-20; HYALINE CAST 0-2
[2025-05-23 10:16] LABS: BUN 14 mg/dl (9-23); SGPT/ALT 35 U/L (5-49)
== END | disposition home or self-care (01) ==
LOC: LAB 08:58
PROVIDERS: ATTEND Internal Medicine Nephrology
DX: Z94.0 Kidney transplant status (principal)

== ENCOUNTER 2025-06-07 14:30 | Emergency (ER) | payer OTHER, MEDICAID ==
[~2025-06-07] VITALS: Ht 165.1 cm; Wt 81.2 kg
[2025-06-07] MEDS ORDERED: Acetaminophen/Oxycodone 5 MG/325 MG TABLET PO ONE (14:55)
[2025-06-07] MEDS ORDERED: TRAMADOL HCL50 MG PO (15:59)
[2025-06-07] MEDS ORDERED: COLACE 2-IN-11 EACH PO (15:59)
[2025-06-07] MEDS ORDERED: METHOCARBAMOL500 M1 PO (15:59)
== END 2025-06-07 16:03 | disposition home or self-care (01) ==
LOC: ED 14:30
DX: M54.50 Low back pain, unspecified (principal); I25.10 Atherosclerotic heart disease of native coronary artery without angina pectoris; E11.9 Type 2 diabetes mellitus without complications; I10 Essential (primary) hypertension; E78.5 Hyperlipidemia, unspecified; Z88.6 Allergy status to analgesic agent; Z88.8 Allergy status to other drugs, medicaments and biological substances; Z79.899 Other long term (current) drug therapy; Z79.01 Long term (current) use of anticoagulants; Z98.890 Other specified postprocedural states; Z94.0 Kidney transplant status; Z90.49 Acquired absence of other specified parts of digestive tract; Z86.718 Personal history of other venous thrombosis and embolism; Z86.711 Personal history of pulmonary embolism

== ENCOUNTER → 2025-06-15 | Outpatient (CLI) | payer OTHER, MEDICAID ==
[~2025-06-15] MED LIST changes: +COLACE 2-IN-11 EACH PO; +METHOCARBAMOL500 M1 PO; +TRAMADOL HCL50 MG PO
== END | disposition home or self-care (01) ==
LOC: RESCLI 00:54
PROVIDERS: ATTEND Student in an Organized Health Care Education/Training Program
DX: M54.9 Dorsalgia, unspecified (principal); E03.9 Hypothyroidism, unspecified; I11.0 Hypertensive heart disease with heart failure; I50.32 Chronic diastolic (congestive) heart failure; E11.9 Type 2 diabetes mellitus without complications; Q87.81 Alport syndrome; K59.00 Constipation, unspecified; M81.0 Age-related osteoporosis without current pathological fracture; Z79.01 Long term (current) use of anticoagulants; Z79.899 Other long term (current) drug therapy; Z94.0 Kidney transplant status

== ENCOUNTER 2025-06-26 15:16 | Inpatient (IN) | payer OTHER, MEDICAID ==
[~2025-06-26] VITALS: Ht 165.1 cm; Wt 76.4 kg
[~2025-06-26 15:16] MED LIST changes: +Coumadin2 MG PO
[2025-06-26 15:21] VITALS: BP 147/56
[2025-06-26 17:16] LABS: BILIRUBIN Negative (Negative); BLOOD Negative (Negative); CLARITY Clear (Clear); COLOR Yellow (Yellow); KETONE 3+ (Negative); LEUKO ESTERASE Negative (Negative); NITRITE Negative (Negative); PH 5.5 (4.5-8.0); SPECIFIC GRAVITY 1.025 (1.001-1.030); UROBILINOGEN 0.2 E.U./dl (0.0-1.0)
[2025-06-26 17:22] LABS: EPITHELIAL CELLS 16-20; HYALINE CAST 0-2; MUCOUS 1+; RBC 0-2 rbc/hpf (0-2); WBC 0-2 wbc/hpf (0-5)
[2025-06-26 17:30] LABS: MEAN CELL VOLUME 88.6 fl (81.0-99.0); MEAN CORPUSCULAR HGB 28.7 pg (27.0-31.0); MEAN PLATELET VOLUME 12.7 fl (9.6-12.3); NUCLEATED RED BLOOD CELL 0.0 % (0.0-0.0); NUCLEATED RED BLOOD CELL 0.0 10*3/uL (0.0-0.0); PLATELET COUNT AUTOMATED 166 10*3/uL (130-400); RED CELL DISTRI WIDTH 13.6 % (0-14.5)
[2025-06-26 17:48] LABS: BUN 26.0 mg/dl (9-23); SGPT/ALT 304.0 U/L (5-49)
[2025-06-26 18:25] LABS: MANUAL DIFF REFLEX YES
[2025-06-26 18:28] LABS: PLATELET SUFFICIENCY NORMAL (NORMAL)
[2025-06-26] MEDS ORDERED: Ondansetron Hydrochloride 4 MG/2 ML VIAL IV PRN (22:00)
[2025-06-26] MEDS ORDERED: BISACODYL 10 MG SUPP R PRN (22:00)
[2025-06-26] MEDS ORDERED: ACETAMINOPHEN 325 MG TAB PO PRN (22:00)
[2025-06-26] MEDS ORDERED: ACETAMINOPHEN 650 MG SUPP R PRN (22:00)
[2025-06-26] MEDS ORDERED: BISACODYL 5 MG TAB PO PRN (22:00)
[2025-06-26] MEDS ORDERED: Acetaminophen/Hydrocodone 5 MG/325 MG TABLET PO PRN (22:00)
[2025-06-26] MEDS ORDERED: METHOCARBAMOL 500 MG TAB PO PRN (22:20)
[2025-06-26 22:30] VITALS: BP 182/58
[2025-06-26] MEDS ORDERED: CARVEDILOL3.125 MG PO (22:35)
[2025-06-26] MEDS ORDERED: LASIX20 MG PO (22:36)
[2025-06-26] MEDS ORDERED: ZOLOFT100 MG PO (22:37)
[2025-06-26] MEDS ORDERED: KLOR-CON M2020 ME1 PO (22:39)
[2025-06-26] MEDS ORDERED: VITAMIN D350 MC3 PO (22:42)
[2025-06-26] MEDS ORDERED: IRON18 M1 PO (22:43)
[2025-06-26] MEDS ORDERED: AMLODIPINE BESYL5 MG PO (22:44)
[2025-06-26] MEDS ORDERED: TRULICITY3 MG/0.5 M SQ (22:46)
[2025-06-26] MEDS ORDERED: ASPIRIN CHEWABL81 MG PO (22:46)
[2025-06-26] MEDS ORDERED: DEXTROSE 50% 25 GM/50 ML VIAL IV PRN (22:50)
[2025-06-26] MEDS ORDERED: Dexamethasone Sodium Phospha 4 MG/ML VIAL IV SCH (22:55)
[2025-06-27] VITALS: BP 148/54
[2025-06-27] MEDS ORDERED: BACTRIM 400-801 EACH PO (00:25)
[2025-06-27] MEDS ORDERED: WARFARIN SODIU2.5 MG PO (00:33)
[2025-06-27] MEDS ORDERED: NOVAPLUS TACROLI1 MG PO (00:35)
[2025-06-27] MEDS ORDERED: Docusate Sodium/Senna 1 TAB TAB PO PRN (01:00)
[2025-06-27 06:01] LABS: MEAN CELL VOLUME 90.3 fl (81.0-99.0); MEAN CORPUSCULAR HGB 28.2 pg (27.0-31.0); MEAN PLATELET VOLUME 12.1 fl (9.6-12.3); NUCLEATED RED BLOOD CELL 0.0 % (0.0-0.0); NUCLEATED RED BLOOD CELL 0.0 10*3/uL (0.0-0.0); PLATELET COUNT AUTOMATED 154 10*3/uL (130-400); RED CELL DISTRI WIDTH 13.7 % (0-14.5)
[2025-06-27 06:03] LABS: MANUAL DIFF REFLEX YES
[2025-06-27] MEDS ORDERED: SODIUM CHLORIDE 0.9% 1,000 ML IV ONE (06:15)
[2025-06-27 06:30] LABS: ACT PARTIAL THROMBO TIME 50.4 SECONDS (20.0-32.1)
[2025-06-27 06:45] LABS: BUN 26.0 mg/dl (9-23); FREE T4 1.47 ng/dl (0.89-1.76); LDL CHOLESTEROL 98.0 mg/dL (9-159); SGPT/ALT 650.0 U/L (5-49)
[2025-06-27 07:06] LABS: PLATELET SUFFICIENCY NORMAL (NORMAL)
[2025-06-27] MEDS ORDERED: INSULIN LISPRO 1 UNIT/0.01 ML SQ SCH (07:30)
[2025-06-27 08:00] VITALS: BP 178/84
[2025-06-27] MEDS ORDERED: Mycophenolate Mofetil 250 MG CAP PO SCH (08:30)
[2025-06-27 08:51] LABS: VITAMIN D, 25-HYDROXY 38.8 ng/mL (30-100)
[2025-06-27 09:50] LABS: ABG BASE EXCESS -11.7 mmol/L (-2.0-3.0); ABG O2 SATURATION 97.9 % (94.0-98.0); ARTERIAL BLOOD GAS PH 7.361 (7.350-7.450); ARTERIAL BLOOD GAS PO2 103.1 mmHg (83.0-108.0)
[2025-06-27] MEDS ORDERED: LISINOPRIL 2.5 MG TAB PO SCH (10:00)
[2025-06-27] MEDS ORDERED: Sulfamethoxazole/Trimethopri 1 TAB TAB PO SCH (10:00)
[2025-06-27] MEDS ORDERED: Cholecalciferol 2,000 UNIT TABLET (50 MCG) PO SCH (10:00)
[2025-06-27] MEDS ORDERED: ASPIRIN, CHEWABLE 81 MG TAB PO SCH (10:00)
[2025-06-27] MEDS ORDERED: Docusate Sodium/Senna 1 TAB TAB PO SCH (10:00)
[2025-06-27] MEDS ORDERED: CARVEDILOL 3.125 MG TAB PO SCH (10:00)
[2025-06-27] MEDS ORDERED: Insulin Glargine, Recombinan 1 UNIT/0.01 ML SC SCH (10:00)
[2025-06-27] MEDS ORDERED: Clopidogrel Hydrogen Sulfate 75 MG TAB PO SCH (10:00)
[2025-06-27] MEDS ORDERED: SODIUM BICARBONATE 150 MEQ in DEXTROSE 5% 1,000 ML IV SCH (11:00)
[2025-06-27 12:00] VITALS: BP 158/61
[2025-06-27 16:00] VITALS: BP 160/58
[2025-06-27] MEDS ORDERED: METHOCARBAMOL 500 MG TAB PO SCH (18:00)
[2025-06-27 20:00] VITALS: BP 157/53
[2025-06-27] MEDS ORDERED: ATORVASTATIN CALCIUM 40 MG TABLET PO SCH (22:00)
[2025-06-27] MEDS ORDERED: SODIUM BICARBONATE 50 MEQ/50 ML VIAL IV ONE (23:24)
[2025-06-28] VITALS: BP 159/50
[2025-06-28 06:37] LABS: ACT PARTIAL THROMBO TIME 43.7 SECONDS (20.0-32.1)
[2025-06-28 06:46] LABS: MEAN CORPUSCULAR HGB 28.6 pg (27.0-31.0); MEAN PLATELET VOLUME 12.2 fl (9.6-12.3); NUCLEATED RED BLOOD CELL 0.0 % (0.0-0.0); NUCLEATED RED BLOOD CELL 0.0 10*3/uL (0.0-0.0); PLATELET COUNT AUTOMATED 146 10*3/uL (130-400); RED CELL DISTRI WIDTH 13.7 % (0-14.5)
[2025-06-28 06:47] LABS: URINE AMPHETAMINES Negative (1000ng/ml); URINE BARBITURATES Negative (200ng/ml); URINE BENZODIAZEPINES Negative (200ng/ml); URINE CANNABINOIDS (THC) Negative (50ng/ml); URINE COCAINE Negative (300ng/ml); URINE METHADONE Negative (300ng/ml); URINE OPIATES Positive (300ng/ml); URINE PHENCYCLIDINE Negative (25ng/ml)
[2025-06-28 07:03] LABS: BUN 27 mg/dl (9-23); SGPT/ALT 700 U/L (5-49)
[2025-06-28 07:28] LABS: MANUAL DIFF REFLEX YES; MEAN CELL VOLUME 87.0 fl (81.0-99.0)
[2025-06-28 07:30] LABS: PLATELET SUFFICIENCY NORMAL (NORMAL)
[2025-06-28 08:00] VITALS: BP 158/90
[2025-06-28] MEDS ORDERED: Lactated Ringer's Solution 1,000 ML IV SCH (11:30)
[2025-06-28 12:00] VITALS: BP 150/87
[2025-06-28] MEDS ORDERED: IRON18 M1 PO (14:41)
[2025-06-28] MEDS ORDERED: FENTANYL 050 MCG/1 M IV (14:41)
[2025-06-28 15:53] VITALS: BP 164/55
== END 2025-06-28 20:22 | disposition short-term general hospital (02) | DRG 552 ==
LOC: ED 15:16 → 4E 19:57 → EDHOLD 19:57 → 4E 22:21 → 5E 06-28 16:52
PROVIDERS: Nurse Practitioner Family; Student in an Organized Health Care Education/Training Program; ADMIT Internal Medicine; ATTEND Internal Medicine
DX: S22.080A Wedge compression fracture of T11-T12 vertebra, initial encounter for closed fracture (principal); E87.1 Hypo-osmolality and hyponatremia; Z94.0 Kidney transplant status; D84.9 Immunodeficiency, unspecified; N18.31 Chronic kidney disease, stage 3a; E11.22 Type 2 diabetes mellitus with diabetic chronic kidney disease; R74.01 Elevation of levels of liver transaminase levels; E11.65 Type 2 diabetes mellitus with hyperglycemia; N28.1 Cyst of kidney, acquired; E03.9 Hypothyroidism, unspecified; E78.5 Hyperlipidemia, unspecified; E66.01 Morbid (severe) obesity due to excess calories; E87.8 Other disorders of electrolyte and fluid balance, not elsewhere classified; D75.1 Secondary polycythemia; I12.9 Hypertensive chronic kidney disease with stage 1 through stage 4 chronic kidney disease, or unspecified chronic kidney disease; G89.29 Other chronic pain; Z86.718 Personal history of other venous thrombosis and embolism; S32.040S Wedge compression fracture of fourth lumbar vertebra, sequela; Z88.8 Allergy status to other drugs, medicaments and biological substances; Z91.09 Other allergy status, other than to drugs and biological substances; Z90.49 Acquired absence of other specified parts of digestive tract; Z98.891 History of uterine scar from previous surgery; I25.2 Old myocardial infarction; Z82.49 Family history of ischemic heart disease and other diseases of the circulatory system; Z79.4 Long term (current) use of insulin; Z83.3 Family history of diabetes mellitus; Z80.1 Family history of malignant neoplasm of trachea, bronchus and lung; Z79.899 Other long term (current) drug therapy; Z79.01 Long term (current) use of anticoagulants; Z79.2 Long term (current) use of antibiotics; S22.000G Wedge compression fracture of unspecified thoracic vertebra, subsequent encounter for fracture with delayed healing; X58.XXXD Exposure to other specified factors, subsequent encounter; X58.XXXS Exposure to other specified factors, sequela; Z68.28 Body mass index [BMI] 28.0-28.9, adult

== ENCOUNTER 2025-07-16 11:47 | Inpatient (IN) | payer OTHER, MEDICAID ==
[~2025-07-16] VITALS: Ht 167.6 cm; Wt 74.8 kg
[~2025-07-16 11:47] MED LIST changes: +AMLODIPINE BESYL5 MG PO; +ASPIRIN CHEWABL81 MG PO; +BACTRIM 400-801 EACH PO; +CARVEDILOL3.125 MG PO; +FENTANYL 050 MCG/1 M IV; +IRON18 M1 PO; +NOVAPLUS TACROLI1 MG PO; +TRULICITY3 MG/0.5 M SQ; +VITAMIN D350 MC3 PO; +WARFARIN SODIU2.5 MG PO; +ZOLOFT100 MG PO
[2025-07-16 12:01] VITALS: BP 129/49
[2025-07-16] MEDS ORDERED: ATORVASTATIN CA40 M1 PO (12:22)
[2025-07-16] MEDS ORDERED: FUROSEMIDE20 M1 PO (12:23)
[2025-07-16] MEDS ORDERED: JARDIANCE10 MG PO (12:23)
[2025-07-16] MEDS ORDERED: OXYCONTIN10 M1 PO (12:25)
[2025-07-16] MEDS ORDERED: METFORMIN HCL500 M2 PO (12:26)
[2025-07-16 12:28] LABS: MEAN CELL VOLUME 86.2 fl (81.0-99.0); MEAN CORPUSCULAR HGB 28.2 pg (27.0-31.0); MEAN PLATELET VOLUME 12.6 fl (9.6-12.3); NUCLEATED RED BLOOD CELL 0.0 % (0.0-0.0); NUCLEATED RED BLOOD CELL 0.0 10*3/uL (0.0-0.0); PLATELET COUNT AUTOMATED 138 10*3/uL (130-400); RED CELL DISTRI WIDTH 16.5 % (0-14.5)
[2025-07-16 12:34] LABS: MANUAL DIFF REFLEX YES
[2025-07-16 12:48] LABS: BUN 60.0 mg/dl (9-23); SGPT/ALT 138.0 U/L (5-49)
[2025-07-16 12:49] LABS: BASOPHILS 1 % (0-1)
[2025-07-16 12:50] LABS: PLATELET SUFFICIENCY NORMAL (NORMAL)
[2025-07-16] MEDS ORDERED: SODIUM CHLORIDE 0.9% 1,000 ML IV ONE (15:40)
[2025-07-16] MEDS ORDERED: ACETAMINOPHEN 325 MG/10.15 ML UDC PEG PRN (17:10)
[2025-07-16] MEDS ORDERED: BISACODYL 10 MG SUPP R PRN (17:10)
[2025-07-16] MEDS ORDERED: Ondansetron Hydrochloride 4 MG/2 ML VIAL IV PRN (17:10)
[2025-07-16 17:25] VITALS: BP 121/57
[2025-07-16] MEDS ORDERED: DEXTROSE 50% 25 GM/50 ML VIAL IV PRN (17:40)
[2025-07-16] MEDS ORDERED: Albuterol Sulf/Ipratropium 3 ML VIAL NEB PRN (17:40)
[2025-07-16] MEDS ORDERED: AZITHROMYCIN 250 ML IV SCH (18:00)
[2025-07-16 18:30] VITALS: BP 132/49
[2025-07-16] MEDS ORDERED: SODIUM CHLORIDE 0.9% 500 ML IV ONE (18:45)
[2025-07-16] MEDS ORDERED: AMIODARONE HCL100 M1 PO (18:56)
[2025-07-16] MEDS ORDERED: LIDODERM1 EACH T (18:57)
[2025-07-16 20:00] VITALS: BP 112/46
[2025-07-16] MEDS ORDERED: OXYCODONE HCL 10 MG PO SCH (20:00)
[2025-07-16] MEDS ORDERED: INSULIN LISPRO 1 UNIT/0.01 ML SQ SCH (22:00)
[2025-07-16 22:47] LABS: BUN 59.0 mg/dl (9-23); SGPT/ALT 141.0 U/L (5-49)
[2025-07-16 23:11] LABS: MEAN CELL VOLUME 87.3 fl (81.0-99.0); MEAN CORPUSCULAR HGB 28.6 pg (27.0-31.0); NUCLEATED RED BLOOD CELL 0.0 % (0.0-0.0); NUCLEATED RED BLOOD CELL 0.0 10*3/uL (0.0-0.0); PLATELET COUNT AUTOMATED 163 10*3/uL (130-400); RED CELL DISTRI WIDTH 17.1 % (0-14.5)
[2025-07-16 23:16] LABS: MANUAL DIFF REFLEX YES
[2025-07-16] MEDS ORDERED: DEXTROSE 10 % IN WATER 250 ML DEHP.FR.BG IV ONE (23:40)
[2025-07-16] MEDS ORDERED: INSULIN REGULAR, HUMAN 1 UNIT/0.01 ML IV ONE (23:40)
[2025-07-16] MEDS ORDERED: SODIUM POLYSTYRENE SULFONATE 15 GM/60 ML BOT PO ONE (23:40)
[2025-07-16 23:42] LABS: PLATELET SUFFICIENCY NORMAL (NORMAL)
[2025-07-17] VITALS: BP 117/48
[2025-07-17 08:00] VITALS: BP 126/52
[2025-07-17 09:25] LABS: MEAN CELL VOLUME 87.6 fl (81.0-99.0); MEAN CORPUSCULAR HGB 28.6 pg (27.0-31.0); MEAN PLATELET VOLUME 13.7 fl (9.6-12.3); NUCLEATED RED BLOOD CELL 0.0 % (0.0-0.0); NUCLEATED RED BLOOD CELL 0.0 10*3/uL (0.0-0.0); PLATELET COUNT AUTOMATED 192 10*3/uL (130-400); RED CELL DISTRI WIDTH 17.2 % (0-14.5)
[2025-07-17 09:36] LABS: MANUAL DIFF REFLEX YES
[2025-07-17 09:54] LABS: PLATELET SUFFICIENCY NORMAL (NORMAL)
[2025-07-17 10:21] LABS: BUN 64.0 mg/dl (9-23)
[2025-07-17] MEDS ORDERED: SODIUM CHLORIDE 0.9% 1,000 ML IV SCH (11:55)
[2025-07-17 12:00] VITALS: BP 116/45
[2025-07-17] MEDS ORDERED: BARIUM SULFATE 98% 340 GM BOT PO ONE ×2 (14:00→14:36)
[2025-07-17] MEDS ORDERED: OXYCODONE HCL (IR) 5 MG TAB PO PRN (15:05)
[2025-07-17] MEDS ORDERED: Acetaminophen/Hydrocodone 5 MG/325 MG TABLET PO PRN (15:05)
[2025-07-17] MEDS ORDERED: FOAM BANDAGE 5X5 T ONE ×2 (15:17→15:26)
[2025-07-17] MEDS ORDERED: SILICONE CONTACT LAYER WOUND DRESSING (VERSATEL) ONE (15:17)
[2025-07-17] MEDS ORDERED: HYDROGEL WOUND DRESSING T ONE (15:17)
[2025-07-17] MEDS ORDERED: FOAM BANDAGE 1 EACH BANDAGE T ONE (15:26)
[2025-07-17] MEDS ORDERED: FOAM BANDAGE HEEL T ONE (15:27)
[2025-07-17 16:00] VITALS: BP 116/43
[2025-07-17 20:00] VITALS: BP 118/46
[2025-07-17] MEDS ORDERED: CARVEDILOL 3.125 MG TAB PO SCH (22:00)
[2025-07-18] VITALS: BP 111/47
[2025-07-18] MEDS ORDERED: SODIUM CHLORIDE 0.9% 1,000 ML IV ONE (01:18)
[2025-07-18 06:01] LABS: MEAN CELL VOLUME 87.2 fl (81.0-99.0); MEAN CORPUSCULAR HGB 28.3 pg (27.0-31.0); MEAN PLATELET VOLUME 12.5 fl (9.6-12.3); NUCLEATED RED BLOOD CELL 0.0 % (0.0-0.0); NUCLEATED RED BLOOD CELL 0.0 10*3/uL (0.0-0.0); PLATELET COUNT AUTOMATED 221 10*3/uL (130-400); RED CELL DISTRI WIDTH 17.5 % (0-14.5)
[2025-07-18 06:19] LABS: BUN 71.0 mg/dl (9-23); SGPT/ALT 101.0 U/L (5-49)
[2025-07-18 06:37] LABS: MANUAL DIFF REFLEX YES
[2025-07-18 06:41] LABS: BASOPHILS 1 % (0-1)
[2025-07-18 06:42] LABS: PLATELET SUFFICIENCY NORMAL (NORMAL)
[2025-07-18 08:00] VITALS: BP 129/52
[2025-07-18] MEDS ORDERED: Clopidogrel Hydrogen Sulfate 75 MG TAB PO SCH (10:00)
[2025-07-18] MEDS ORDERED: Cholecalciferol 2,000 UNIT TABLET (50 MCG) PO SCH (10:00)
[2025-07-18] MEDS ORDERED: LISINOPRIL 10 MG TAB PO SCH (10:00)
[2025-07-18] MEDS ORDERED: SODIUM BICARBONATE 150 MEQ in DEXTROSE 5% 1,000 ML IV SCH (11:00)
[2025-07-18] MEDS ORDERED: PHYTONADIONE 5 MG in SODIUM CHLORIDE 0.9% 50 ML IV ONE (11:40)
[2025-07-18 12:00] VITALS: BP 133/60
[2025-07-18 16:00] VITALS: BP 161/62
[2025-07-18] MEDS ORDERED: ATORVASTATIN CALCIUM 40 MG TABLET PO SCH (18:00)
[2025-07-18 20:00] VITALS: BP 130/60
[2025-07-18 20:31] LABS: BASO # 0.1 10*3/uL (0.0-0.1); BASO % 0.4 % (0.0-1.0); EOS # 0.2 10*3/uL (0.0-0.4); EOS % 1.1 % (1.0-4.0); MEAN CELL VOLUME 87.7 fl (81.0-99.0); MEAN CORPUSCULAR HGB 27.8 pg (27.0-31.0); MEAN PLATELET VOLUME 12.4 fl (9.6-12.3); MONO # 1.2 10*3/uL (0.1-1.0); MONO % 7.2 % (3.0-9.0); NEUT # 14.0 10*3/uL (2.3-7.9); NEUT % 86.9 % (47.0-73.0); NUCLEATED RED BLOOD CELL 0.0 % (0.0-0.0); NUCLEATED RED BLOOD CELL 0.0 10*3/uL (0.0-0.0); PLATELET COUNT AUTOMATED 253 10*3/uL (130-400); RED CELL DISTRI WIDTH 17.2 % (0-14.5)
[2025-07-18 20:48] LABS: BUN 66.0 mg/dl (9-23); SGPT/ALT 90.0 U/L (5-49)
[2025-07-19] VITALS (10 sets, daily range): BP systolic 134–171; BP diastolic 50–73
[2025-07-19 05:54] LABS: BUN 58.0 mg/dl (9-23)
[2025-07-19 06:08] LABS: MEAN CELL VOLUME 85.6 fl (81.0-99.0); MEAN CORPUSCULAR HGB 28.1 pg (27.0-31.0); MEAN PLATELET VOLUME 12.1 fl (9.6-12.3); NUCLEATED RED BLOOD CELL 0.0 % (0.0-0.0); NUCLEATED RED BLOOD CELL 0.0 10*3/uL (0.0-0.0); PLATELET COUNT AUTOMATED 245 10*3/uL (130-400); RED CELL DISTRI WIDTH 17.6 % (0-14.5)
[2025-07-19] MEDS ORDERED: Insulin Lispro, Recombinant 1 UNIT/0.01 ML UN SC ONE (06:35)
[2025-07-19] MEDS ORDERED: INSULIN LISPRO 1 UNIT/0.01 ML SQ ONE (06:50)
[2025-07-19 07:24] LABS: MANUAL DIFF REFLEX YES
[2025-07-19 07:29] LABS: PLATELET SUFFICIENCY NORMAL (NORMAL)
[2025-07-19] MEDS ORDERED: SODIUM CHLORIDE 0.9% 1,000 ML IV ONE (08:04)
[2025-07-19] MEDS ORDERED: HYDROmorphONE Hydrochloride 0.5 MG/0.5 ML SYRINGE IV ONE ×2 (09:35→17:15)
[2025-07-19] MEDS ORDERED: SODIUM CHLORIDE 0.9% 1,000 ML IV SCH (10:50)
[2025-07-19] MEDS ORDERED: PROPOFOL 200 MG/20 ML VIAL IV ONE (11:34)
[2025-07-19] MEDS ORDERED: Lidocaine Hydrochloride 2% 5 ML SDV IM ONE (11:34)
[2025-07-19] MEDS ORDERED: Phenylephrine Hydrochloride 1 MG/10 ML SYRINGE IV ONE (11:34)
[2025-07-19] MEDS ORDERED: Labetalol Hydrochloride 20 MG/4 ML SYR IV ONE (16:30)
[2025-07-20] VITALS: BP 149/57
[2025-07-20 06:25] LABS: BASO # 0.1 10*3/uL (0.0-0.1); BASO % 0.5 % (0.0-1.0); EOS # 0.2 10*3/uL (0.0-0.4); EOS % 1.1 % (1.0-4.0); MEAN CELL VOLUME 85.6 fl (81.0-99.0); MEAN CORPUSCULAR HGB 28.3 pg (27.0-31.0); MEAN PLATELET VOLUME 12.9 fl (9.6-12.3); MONO # 1.0 10*3/uL (0.1-1.0); MONO % 6.1 % (3.0-9.0); NEUT # 14.6 10*3/uL (2.3-7.9); NEUT % 86.4 % (47.0-73.0); NUCLEATED RED BLOOD CELL 0.0 % (0.0-0.0); NUCLEATED RED BLOOD CELL 0.0 10*3/uL (0.0-0.0); PLATELET COUNT AUTOMATED 248 10*3/uL (130-400); RED CELL DISTRI WIDTH 18.2 % (0-14.5)
[2025-07-20 06:40] LABS: BUN 51 mg/dl (9-23)
[2025-07-20 08:00] VITALS: BP 158/76
[2025-07-20] MEDS ORDERED: Acetaminophen/Hydrocodone 5 MG/325 MG TABLET PEG PRN (08:25)
[2025-07-20] MEDS ORDERED: Cholecalciferol 2,000 UNIT TABLET (50 MCG) PEG SCH (10:00)
[2025-07-20] MEDS ORDERED: Clopidogrel Hydrogen Sulfate 75 MG TAB PEG SCH (10:00)
[2025-07-20] MEDS ORDERED: FLUCONAZOLE 100 MG TAB PEG ONE (10:00)
[2025-07-20] MEDS ORDERED: HYDROmorphONE Hydrochloride 0.5 MG/0.5 ML SYRINGE IV PRN (11:40)
[2025-07-20 12:00] VITALS: BP 111/59
[2025-07-20] MEDS ORDERED: FOAM BANDAGE 1 EACH BANDAGE T ONE (15:53)
[2025-07-20] MEDS ORDERED: HEEL PROTECTOR DEVICE ONE (15:53)
[2025-07-20] MEDS ORDERED: CHAIR CUSHION DEVICE ONE (15:53)
[2025-07-20 16:00] VITALS: BP 156/73
[2025-07-20 17:05] LABS: BILIRUBIN Negative (Negative); BLOOD Negative (Negative); CLARITY Clear (Clear); COLOR Yellow (Yellow); KETONE Negative (Negative); LEUKO ESTERASE 2+ (Negative); NITRITE Negative (Negative); PH 5.5 (4.5-8.0); SPECIFIC GRAVITY 1.020 (1.001-1.030); UROBILINOGEN 1.0 E.U./dl (0.0-1.0)
[2025-07-20 17:12] LABS: BACTERIA 2+
[2025-07-20] MEDS ORDERED: ATORVASTATIN CALCIUM 40 MG TABLET PEG SCH (18:00)
[2025-07-20] MEDS ORDERED: WARFARIN SODIUM 2.5 MG TAB PEG SCH (18:00)
[2025-07-20 20:00] VITALS: BP 146/59
[2025-07-20] MEDS ORDERED: Mycophenolate Mofetil 250 MG CAP PO SCH (20:30)
[2025-07-21] VITALS: BP 141/47
[2025-07-21] MEDS ORDERED: diphenhydrAMINE HCL;LIDO HCL 1 OZ OZ PO SCH
[2025-07-21 07:15] LABS: BASO # 0.1 10*3/uL (0.0-0.1); BASO % 0.6 % (0.0-1.0); EOS # 0.3 10*3/uL (0.0-0.4); EOS % 2.1 % (1.0-4.0); MEAN CELL VOLUME 88.5 fl (81.0-99.0); MEAN CORPUSCULAR HGB 27.9 pg (27.0-31.0); MEAN PLATELET VOLUME 12.3 fl (9.6-12.3); MONO # 0.8 10*3/uL (0.1-1.0); MONO % 5.8 % (3.0-9.0); NEUT # 12.3 10*3/uL (2.3-7.9); NEUT % 85.5 % (47.0-73.0); NUCLEATED RED BLOOD CELL 0.0 % (0.0-0.0); NUCLEATED RED BLOOD CELL 0.0 10*3/uL (0.0-0.0); PLATELET COUNT AUTOMATED 228 10*3/uL (130-400); RED CELL DISTRI WIDTH 18.2 % (0-14.5)
[2025-07-21] MEDS ORDERED: diphenhydrAMINE hydrochloride 25 MG/10 ML UDC PO ONE (07:35)
[2025-07-21] MEDS ORDERED: MG-AL HYDROXIDE/SIMETICONE 30 ML UDC PO ONE (07:35)
[2025-07-21 07:36] LABS: BUN 46 mg/dl (9-23)
[2025-07-21 08:00] VITALS: BP 149/80
[2025-07-21] MEDS ORDERED: MED. FROM HOME 1 EACH EA PO SCH (08:00)
[2025-07-21] MEDS ORDERED: FLUCONAZOLE 100 MG TAB PEG SCH (11:35)
[2025-07-21 12:00] VITALS: BP 149/55
[2025-07-21 16:00] VITALS: BP 145/62
[2025-07-21 20:00] VITALS: BP 149/57
[2025-07-22] VITALS: BP 151/54
[2025-07-22 06:06] LABS: BUN 31 mg/dl (9-23); SGPT/ALT 59 U/L (5-49)
[2025-07-22 06:15] LABS: BASO # 0.1 10*3/uL (0.0-0.1); BASO % 0.7 % (0.0-1.0); EOS # 0.3 10*3/uL (0.0-0.4); EOS % 2.5 % (1.0-4.0); MEAN CELL VOLUME 88.1 fl (81.0-99.0); MEAN CORPUSCULAR HGB 28.1 pg (27.0-31.0); MEAN PLATELET VOLUME 12.4 fl (9.6-12.3); MONO # 0.8 10*3/uL (0.1-1.0); MONO % 6.1 % (3.0-9.0); NEUT # 10.4 10*3/uL (2.3-7.9); NEUT % 82.3 % (47.0-73.0); NUCLEATED RED BLOOD CELL 0.0 10*3/uL (0.0-0.0); NUCLEATED RED BLOOD CELL 0.2 % (0.0-0.0); PLATELET COUNT AUTOMATED 200 10*3/uL (130-400); RED CELL DISTRI WIDTH 18.4 % (0-14.5)
[2025-07-22 08:00] VITALS: BP 159/65
[2025-07-22] MEDS ORDERED: FOAM BANDAGE 1 EACH BANDAGE T ONE (11:03)
[2025-07-22] MEDS ORDERED: OXYCODONE HCL (IR) 5 MG TAB PEG PRN (11:50)
[2025-07-22 12:00] VITALS: BP 172/62
[2025-07-22 16:00] VITALS: BP 167/59
[2025-07-22 20:00] VITALS: BP 151/58
[2025-07-22] MEDS ORDERED: MED. FROM HOME 1 EACH EA PEG SCH (20:30)
[2025-07-22] MEDS ORDERED: Menthol/Zinc Oxide 4 GM THIN T SCH (22:00)
[2025-07-23] VITALS: BP 160/80
[2025-07-23 04:30] LABS: BASO # 0.1 10*3/uL (0.0-0.1); BASO % 0.8 % (0.0-1.0); EOS # 0.3 10*3/uL (0.0-0.4); EOS % 2.7 % (1.0-4.0); MEAN CELL VOLUME 87.7 fl (81.0-99.0); MEAN CORPUSCULAR HGB 27.9 pg (27.0-31.0); MEAN PLATELET VOLUME 12.2 fl (9.6-12.3); MONO # 0.8 10*3/uL (0.1-1.0); MONO % 6.8 % (3.0-9.0); NEUT # 8.8 10*3/uL (2.3-7.9); NEUT % 80.4 % (47.0-73.0); NUCLEATED RED BLOOD CELL 0.0 10*3/uL (0.0-0.0); NUCLEATED RED BLOOD CELL 0.3 % (0.0-0.0); PLATELET COUNT AUTOMATED 192 10*3/uL (130-400); RED CELL DISTRI WIDTH 18.3 % (0-14.5)
[2025-07-23 04:51] LABS: BUN 24 mg/dl (9-23); SGPT/ALT 58 U/L (5-49)
[2025-07-23 09:15] VITALS: BP 158/57
[2025-07-23] MEDS ORDERED: LISINOPRIL 10 MG TAB PEG SCH (10:00)
[2025-07-23] MEDS ORDERED: Amiodarone Hydrochloride 200 MG TAB PEG SCH (10:00)
[2025-07-23] MEDS ORDERED: AMOX-CLAV 875-1 EACH PO (11:49)
[2025-07-23] MEDS ORDERED: ADMELOG100 UNIT/1 SQ (11:49)
[2025-07-23] MEDS ORDERED: FLUCONAZOLE100 MG PEG (11:49)
[2025-07-23 12:00] VITALS: BP 160/72
[2025-07-23 16:00] VITALS: BP 181/71
== END 2025-07-23 19:10 | DRG 177 ==
LOC: ED 11:47 → EDHOLD 15:58 → 4E 15:58 → EDHOLD 17:18 → 4E 17:47
PROVIDERS: Emergency Medicine; Student in an Organized Health Care Education/Training Program; ADMIT Internal Medicine; ATTEND Internal Medicine
PROC: 0DH63UZ Insertion of Feeding Device into Stomach, Percutaneous Approach (ICD-10-PCS; principal; 2025-07-19)
PROC: 0DB58ZX Excision of Esophagus, Via Natural or Artificial Opening Endoscopic, Diagnostic (ICD-10-PCS; 2025-07-19)
DX: J69.0 Pneumonitis due to inhalation of food and vomit (principal); E43 Unspecified severe protein-calorie malnutrition; N17.0 Acute kidney failure with tubular necrosis; S22.000A Wedge compression fracture of unspecified thoracic vertebra, initial encounter for closed fracture; E87.1 Hypo-osmolality and hyponatremia; Z94.0 Kidney transplant status; I12.0 Hypertensive chronic kidney disease with stage 5 chronic kidney disease or end stage renal disease; B37.81 Candidal esophagitis; N18.32 Chronic kidney disease, stage 3b; Z20.822 Contact with and (suspected) exposure to COVID-19; I25.10 Atherosclerotic heart disease of native coronary artery without angina pectoris; E78.5 Hyperlipidemia, unspecified; E11.22 Type 2 diabetes mellitus with diabetic chronic kidney disease; E87.6 Hypokalemia; E11.65 Type 2 diabetes mellitus with hyperglycemia; E03.9 Hypothyroidism, unspecified; D72.829 Elevated white blood cell count, unspecified; D72.0 Genetic anomalies of leukocytes; E66.01 Morbid (severe) obesity due to excess calories; D72.828 Other elevated white blood cell count; R13.10 Dysphagia, unspecified; K44.9 Diaphragmatic hernia without obstruction or gangrene; Z88.8 Allergy status to other drugs, medicaments and biological substances; Z86.718 Personal history of other venous thrombosis and embolism; Z79.01 Long term (current) use of anticoagulants; Z90.49 Acquired absence of other specified parts of digestive tract; Z83.3 Family history of diabetes mellitus; Z80.9 Family history of malignant neoplasm, unspecified; Z79.4 Long term (current) use of insulin; I25.2 Old myocardial infarction; Z68.26 Body mass index [BMI] 26.0-26.9, adult